=== PATIENT | male | born 1960 | race African-American/Black ===

== ENCOUNTER 2020-05-31 18:08 | Inpatient (IN) | payer OTHER, SELFPAY ==
--- NOTE | ~2020-05-31 | US_ITS ---
EXAMINATION: US carotid duplex BI DATE: 06/02/2020 10:33 INDICATION: Acute infarcts in the left occipital lobe and cerebellum. TECHNIQUE: Grayscale, color Doppler, and pulsed Doppler images of the cervical carotid arteries were obtained. The degree of vessel stenosis is placed in one of the following categories: normal, <50%, 5 0-69%, >=70% but less than near-occlusion, near-occlusion, or total occlusion. Note that percent sten osis relative to normal distal artery lumen diameter is indirectly measured from velocity measurement s as described by Mustapha, et al. Radiology 2003; 229:340-346. COMPARISON: None. FINDINGS: RIGHT: The right common carotid artery (CCA) peak systolic velocity (PSV) is 94 cm/s. The right internal car otid artery (ICA) PSV is 91 cm/s. The right ICA end-diastolic velocity (EDV) is 32 cm/s. The right IC A/CCA PSV ratio is 1.0. Grayscale and color Doppler images yield an estimate of 0% diameter reduction from plaque in the ICA. There is antegrade flow in the right vertebral artery. LEFT: The left CCA PSV is 122 cm/s. The left ICA PSV is 91 cm/s. The left ICA EDV is 32 cm/s. The left ICA/ CCA PSV ratio is 0.7. Grayscale and color Doppler images yield an estimate of 0% diameter reduction f rom plaque in the ICA. There is antegrade flow in the left vertebral artery. IMPRESSION: 1. Normal internal carotid arteries. Reviewed, dictated and finalized at location A.
--- NOTE | ~2020-05-31 | XR_ITS ---
XR chest 1V portable DATE: 05/31/2020 21:06 INDICATION: Right leg paresis TECHNIQUE: Portable upright AP chest on 05/31/2020 at 2107 hours COMPARISON: None FINDINGS: Normal heart size. Mild aortic tortuosity. No hilar or mediastinal enlargement. There is mild to moderate right diaphragmatic elevation. There is mild discoid atelectasis or scarring at the lung bases. No pulmonary infiltrate or consolida tion, pleural effusion or pulmonary vascular congestion or pneumothorax is evident. Degenerative spurring and mild dextroscoliosis of the thoracic spine. IMPRESSION: Mild discoid atelectasis or scarring at the lung bases Mild to moderate elevation right leaf of diaphragm Reviewed, dictated and finalized at location A.
--- NOTE | ~2020-05-31 | US_ITS ---
EXAMINATION: US renal BI DATE: 06/01/2020 13:37 INDICATION: Elevated creatinine TECHNIQUE: Multiple ultrasound grayscale images of the kidneys were obtained. COMPARISON: CT angiogram of the abdomen FINDINGS: The right kidney measures 7.4 x 5.7 x 5.9 cm. The left kidney measures 12.2 x 6.7 x 6.7 cm. The kidne ys demonstrate normal echogenicity. There is no hydronephrosis in either kidney. The small bilateral nonobstructing renal stone seen on prior CT are not appreciated in the current study likely due to t heir small size. The bladder is normal. IMPRESSION: 1. Small bilateral renal stone seen earlier in the day on CT are not visualized in the current study likely due to their small size. Otherwise normal kidneys with no hydronephrosis. Reviewed, dictated and finalized at location A. IMPRESSION: 1. Small bilateral renal stone seen earlier in the day on CT are not visualize d in the current study likely due to their small size. Otherwise normal kidneys with no hydronephrosis.
--- NOTE | ~2020-05-31 | CT_ITS ---
EXAMINATION: CTA abd aorta runoff DATE: 05/31/2020 19:38 INDICATION: Right leg weakness, cold right leg TECHNIQUE: Computed tomography (CT) of the abdomen was performed with 150 cc Omnipaque 350 intravenou s contrast. Automated exposure control and iterative reconstruction technique were employed. Exam dos e: 1325.03 mGy-cm total exam DLP. COMPARISON: None. FINDINGS: No hepatic, splenic, pancreatic, and adrenal or suspicious renal space occupying mass lesio n is evident. The gallbladder is present. No bile duct or pancreatic duct dilatation. Bilateral nonobstructive nephrolithiasis. No ureteral calculus or hydroureteronephrosis. There is normal caliber of the abdominal aorta. There is no significant stenosis or occlusion of the abdominal aorta, common, internal or external iliac arteries, common femoral, femoral or popliteal ar teries. The trifurcations are patent. There is some atherosclerotic calcification of these vessels. N o clinically significant stenosis or occlusion is identified. No intraperitoneal or retroperitoneal or pelvic mass lesion or adenopathy or ascites. Normal appendix. No bowel obstruction or intraperitoneal free air. Included skeletal structures are unremarkable. IMPRESSION: Bilateral nonobstructive nephrolithiasis Reviewed, dictated and finalized at Location [facility]. Reviewed, dictated and finalized at location A.
--- NOTE | ~2020-05-31 | US_ITS ---
EXAMINATION:US venous doppler LE BI INDICATION:Right calf pain. Recent stroke. TECHNIQUE: Multiple grayscale, color flow and Doppler images of the bilateral lower extremity deep ve nous systems were obtained and reviewed. COMPARISON:No prior studies for comparison. FINDINGS: The common femoral, superficial femoral and popliteal veins demonstrate normal respiratory variation, augmentation and compressibility. Color flow is also seen within the posterior tibial, pe roneal, greater saphenous and profunda veins. IMPRESSION: 1: No lower extremity deep venous thrombosis. Reviewed, dictated and finalized at location A.
--- NOTE | ~2020-05-31 | CT_ITS ---
EXAMINATION: CT brain wo con DATE: 05/31/2020 19:38 INDICATION: Right leg weakness TECHNIQUE: Computed tomography (CT) of the head was performed without intravenous contrast. The mA wa s adjusted according to patient size. Iterative reconstruction technique was employed. Exam dose: 60 5.33 mGy-cm total exam DLP. COMPARISON: None FINDINGS: No intracranial mass lesion or hemorrhage, midline shift or mass effect. Normal ventricular size. No subdural or epidural hematoma. No orbital mass lesion. Bilateral carotid siphon internal carotid artery calcifications. The mastoid air cells and included paranasal sinuses are normally developed and aerated. No fracture or bone destruction of the cranial vault. IMPRESSION: Cerebral atherosclerosis; no acute intracranial finding is evident. CT is not sensitive for detection of hyperacute ischemic cerebrovascular accident. Reviewed, dictated and finalized at Location [facility]. Reviewed, dictated and finalized at location A. IMPRESSION: Cerebral atherosclerosis; no acute intracranial finding is evident . CT is not sensitive for detection of hyperacute ischemic cerebrovascular acci dent.
--- NOTE | ~2020-05-31 | MR_ITS ---
EXAMINATION: MR brain/brain stem wo/w con DATE: 06/01/2020 13:23 INDICATION: Acute cerebrovascular accident. TECHNIQUE: Magnetic resonance imaging (MRI) of the brain and brainstem was performed without and with 17 mL MultiHance intravenous contrast. Sequences included sagittal and axial T1-weighted FSE, axial diffusion-weighted FS EPI, axial T2*-weighted GRE, axial T2-weighted FLAIR Propeller, and axial T2-we ighted Propeller. Postcontrast sequences included axial and coronal T1-weighted FSE. Apparent diffusi on coefficient (ADC) maps were created. COMPARISON: Head CT 05/31/2020 FINDINGS: There are acute infarcts in the left occipital lobe and bilateral cerebellum. There are sca ttered areas of nonspecific increased T2-weighted signal intensity in the cerebral white matter, whic h is within normal limits for the patient's age. There is no intracranial hemorrhage or abnormal mass lesion. The ventricles are normal in size. The paranasal sinuses are clear. The mastoid air cells ar e normal. The orbits are normal. IMPRESSION: 1. Acute infarcts in the left occipital lobe and bilateral cerebellum. Reviewed, dictated and finalized at location A.
[2020-05-31 18:10] VITALS: BP 132/84; PULSE 88; RESP 13; TEMP 36.9; O2SAT 98
[2020-05-31 18:28] VITALS: BP 120/85; PULSE 80; RESP 13; O2SAT 97
[2020-05-31 18:42] LABS: Basophils Percent Auto 0.2 % (0.2-1.2); Eosinophils Percent Auto 0.1 % (0-4.4); Hematocrit 45.9 % (42.0-52.0); Hemoglobin 15.6 g/dL (14.0-18.0); Immature Granulocyte Absolute 0.07 K/mm3 (0.00-0.031); Immature Granulocyte Percent A 0.4 % (0-0.5); Lymphocytes Absolute Auto 1.72 K/mm3 (0.9-3.2); Lymphocytes Percent Auto 9.3 % (18.3-44.2); Mean Corpuscular Hemoglobin 30.2 pg (26-34); Mean Corpuscular Volume 88.8 fl (80-100); Mean Platelet Volume 12.4 fl (7.4-10.4); Monocytes Absolute Auto 1.1 K/mm3 (0.1-0.6); Neutrophils Absolute Auto 15.5 K/mm3 (1.3-6.7); Platelet Count Result 167 k/mm3 (150-375); Red Blood Count 5.17 M/mm3 (4.6-6.20); Red Cell Distribution Width 12.5 % (11.5-14.5); White Blood Count 18.4 K/mm3 (4.5-10.0)
[2020-05-31 18:49] LABS: INR 1.1; Prothrombin Time 13.8 Seconds (11.1-14.7)
[2020-05-31 18:50] LABS: Partial Thromboplastin Time 29.2 SECONDS (22.3-36.8)
[2020-05-31 18:51] LABS: Blood Urea Nitrogen 27 mg/dL (9-20); Calcium 9.1 mg/dL (8.4-10.2); Carbon Dioxide 31 mmol/L (22-30); Chloride 102 mmol/L (98-107); Estimated CRCL calculation 43 ml/min; Estimated Glomerular Filt Rate 50; Glucose 91 mg/dL (75-110); Potassium 5.2 mmol/L (3.4-5.0); Sodium 139 mmol/L (137-145)
[2020-05-31 19:05] LABS: Troponin I 0.143 ng/mL (0.000-0.034)
--- NOTE | 2020-05-31 19:17 | ED.GENADULT ---
HPI - General Adult General Chief complaint: Neuro Symptoms/Deficit Stated complaint: neuro Time Seen by Provider: 05/31/20 18:48 History of Present Illness HPI narrative: Patient is a 59 y/o male complaining of moderate right leg heaviness starting this morning. There is no alleviating or exacerbating factor. He is not sure about the exact timing, but thought it was perhaps 10:00 AM this morning. He states that he had a previous stroke approximately 5 years ago which left him with residual right hemiparesis. He is usually able to walk with a cane. He states that his right leg weakness is more severe than baseline. He denies any leg pain. He denies any chest pain, SOB or fever. He states that his right leg is always colder than left leg since his previous stroke. Related Data Home Medications Medication Instructions Recorded Confirmed aspirin 81 mg PO DAILY 05/31/20 05/31/20 atorvastatin 40 mg PO HS 05/31/20 05/31/20 gabapentin 300 mg PO HS 05/31/20 05/31/20 lisinopril 5 mg PO DAILY 05/31/20 05/31/20 omeprazole 40 mg PO DAILY 05/31/20 05/31/20 Allergies Allergy/AdvReac Type Severity Reaction Status Date / Time No Known Allergies Allergy Verified 05/31/20 18:16 Review of Systems Constitutional: Constitutional: Denies chills, Denies fever(s), Denies headache(s) and Denies weakness Eyes: Eyes: Denies blurry vision ENT: Denies headache(s) and Denies neck pain Cardiovascular: Cardiovascular: Denies chest pain and Denies dyspnea Respiratory: Respiratory: Denies cough and Denies dyspnea Gastrointestinal: Gastrointestinal: Denies abdominal pain, Denies diarrhea, Denies nausea and Denies vomiting Genitourinary: Genitourinary: Denies hematuria and Denies dysuria Musculoskeletal: Musculoskeletal: Denies back pain and Denies neck pain Neurologic: Denies headache(s), Reports focal weakness (increasing right leg weakness) and Reports weakness PMFSH Past Medical History Medical History GERD (gastroesophageal reflux disease) H/O: HTN (hypertension) History of CVA (cerebrovascular accident) Hyperlipidemia Surgical History Surgical History History of tonsillectomy Family History Family History Mother Heart attack Father Hypertension Social History Social History Smoking packs per day: 0.5 Smoking cigarettes per day: 10.0 Years smoked: 30 Smoking pack-years: 15.00 Smoking status: Current every day smoker Tobacco type: cigarettes Alcohol intake: current Drinks per week: 1 Substance use: current Substance use type: marijuana, crack/cocaine and methamphetamine Gender identity (if verbalized by the patient): Male Spiritual care concerns: No Exam Const: General: no acute distress and well developed Orientation/consciousness: oriented to person, oriented to place, oriented to time and patient oriented x3 HENMT: Head: normocephalic Ears: external ears normal General nose exam: Normal external nose present Eyes: General: appearance normal, both eyes and all related structures Conjunctivae: conjunctivae normal Neck: Neck: normal visual inspection and full ROM Chest: Chest palpation & inspection: normal inspection of the chest and no tenderness Resp: Effort & Inspection: normal respiratory effort Auscultation: clear to auscultation bilaterally Cardio: Rate: regular rate Rhythm: regular rhythm GI: GI Palp: No abdominal tenderness and Yes Soft to palpation Skin: General skin exam: normal color and turgor normal Neuro: General: oriented to person, oriented to place, oriented to time and patient oriented x3 Cognition (Neuro): normal cognition Motor exam (neuro): strength normal (right hemiparesis, however, able to lift right leg off bed) Extrem: General: normal to inspecti
[2020-05-31 19:59] LABS: Creatine Kinase > 16000 U/L (55-170)
[2020-05-31 20:12] VITALS: BP 147/79; PULSE 83; RESP 18; O2SAT 97
[2020-05-31] MEDS: SODIUM CHLORIDE 0.9% IV 1,000 ML 999 ML IV CONT ×2 (20:13→21:17)
[2020-05-31 21:17] VITALS: BP 152/84; PULSE 82; RESP 16; O2SAT 98
[2020-05-31 22:45] VITALS: BP 128/87; PULSE 104; RESP 18; TEMP 36.1; O2SAT 100; BMI 30.4
[2020-05-31] MEDS: SODIUM CHLORIDE 0.9% IV 1,000 ML 125 ML IV CONT (23:03)
--- NOTE | 2020-05-31 23:39 | ADMGEN ---
This patient, Nicho Padron, was admitted to IMU Room 200-01 FROM 05/31/204. Patient/family oriented to hospital policies and general routines including ID bracelet, bed and alarms, visiting hours, pain management, procedures, bathroom and other care routines, personal items, smoking policy, room service/diet, and visiting hours. Valuables list has been completed. Information on how to activate the Rapid Response Team has been discussed. Patient/Family are encouraged to report perceived risks to care and to ask questions if they do not understand what they are told or what they should do.
[2020-05-31 23:42] VITALS: PULSE 80
[2020-06-01] VITALS (18 sets, daily range): BP systolic 103–131; BP diastolic 64–84; PULSE 69–101; RESP 16–20; TEMP 35.8–36.8; O2SAT 97–100
--- NOTE | 2020-06-01 | ECHO_ITS ---
Patient Info Name: Nicho Padron Age: 59 years : 1960 Gender: Male Ht: 66 in Wt: 188 lbs BSA: 2.02 m2 HR: 82 bpm BP: 115 / 66 mmHg Heart Rhythm: Sinus Rhythm Technical Quality: Good Exam Date: 06/01/2020 11:44 AM Exam Location: [facility] Patient Status: Inpatient Admit Date: 06/01/2020 Staff Ordering Physician: Kyler Kinney MD Technology Strategist: Bebeto Taylor RDCS, RT Attending Provider: Kyler Kinney MD Referring Physician: Gregoria CASILLAS; Exam Type: CA echo dop bubble study w con Study Info Indications I63.119 - Cerebral infarction due to embolism of unspecified vertebral artery Strain analysis performed. Complete two-dimensional, color flow and Doppler transthoracic echocardiogram is performed with contrast to opacify the left ventricle and to improve the deliniation of the left ventricle endocardial borders. Complete two-dimensional, color flow and Doppler transthoracic echocardiogram is performed with agitated saline. Summary 1. Left ventricular systolic function is normal, estimated at 60-65%. 2. There is mildly increased left ventricular wall thickness. 3. The left ventricular diastolic function is grade I diastolic dysfunction. 4. No intra-atrial shunt with injection of agitated saline with and without Valsalva. 5. There is mild tricuspid valve regurgitation. 6. No pulmonary hypertension, estimated pulmonary arterial systolic pressure is 27 mmHg. 7. There is trace mitral valve regurgitation. 8. There is no aortic valve stenosis. Recommendations * Consider transesophageal echocardiogram if clinically indicated. Left Ventricle Left ventricular chamber dimension is normal. Left ventricular systolic function is normal, estimated at 60-65%. There is mildly increased left ventricular wall thickness. The left ventricular diastolic function is grade I diastolic dysfunction. Global longitudinal strain is mildly elevated at -14 %. Right Ventricle Right ventricular chamber dimension is normal. Right ventricular systolic function is normal. Left Atria Normal left atrial size. Right Atria Right atrial chamber dimension is mildly enlarged. Atrial Septum No intra-atrial shunt with injection of agitated saline with and without Valsalva. Aortic Valve The aortic valve is trileaflet. There is no aortic valve stenosis. There is trace aortic valve regurgitation. Pulmonic Valve The pulmonic valve is not well visualized. There is trace pulmonic regurgitation. Mitral Valve The mitral valve has normal leaflets. There is trace mitral valve regurgitation. Tricuspid Valve The tricuspid valve leaflets are normal. There is mild tricuspid valve regurgitation. No pulmonary hypertension, estimated pulmonary arterial systolic pressure is 27 mmHg. Pericardium/Pleural The pericardium appears normal. There is trivial pericardial effusion. Inferior Vena Cava Normal inferior vena cava with >50% collapse upon inspiration consistent with normal right atrial pressure, 5 mmHg. Aorta The aortic root size at the sinus of Valsalva is normal. The prox ascending aorta size is normal. Left Ventricular Outflow Tract Name Value Normal LVOT 2D LVOT Diameter 2.1 cm
--- NOTE | 2020-06-01 00:31 | PM.IMHP ---
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 The patient is known to have chronic right upper/lower extremity weakness secondary to a previous stroke but states that his right leg feels much heavier since this morning. He admits to me that he has been very depressed over the past few days and admits that he has been using illicit substances such as crack, methamphetamine and smoking marijuana. He also reports that he fell this morning and laid on the ground for a few hours and was too weak to get up. He denies any fevers, chills, cough, shortness of breath, chest pain, abdominal pain, nausea, vomiting, diarrhea, rectal bleeding or LE edema. He was evaluated in the ER and CT brain was unremarkable. Routine labs demonstrated acute renal failure, rhabdomyolysis, and an elevated troponin. NO other complaints. Review of Systems Review of Systems: All systems reviewed & are unremarkable except as noted in HPI and below PMFSH Past Medical History Medical History GERD (gastroesophageal reflux disease) H/O: HTN (hypertension) History of CVA (cerebrovascular accident) Hyperlipidemia Surgical History Surgical History History of tonsillectomy Family History Family History Mother Heart attack Father Hypertension Social History Social History Smoking packs per day: 0.5 Smoking cigarettes per day: 10.0 Years smoked: 30 Smoking pack-years: 15.00 Smoking status: Current every day smoker Tobacco type: cigarettes Alcohol intake: current Drinks per week: 1 Substance use: current Substance use type: marijuana, crack/cocaine and methamphetamine Gender identity (if verbalized by the patient): Male Spiritual care concerns: No Meds Home Medications and Allergies Home Medications Medication Instructions Recorded Confirmed Type aspirin 81 mg PO DAILY 05/31/20 05/31/20 History atorvastatin 40 mg PO HS 05/31/20 05/31/20 History gabapentin 300 mg PO HS 05/31/20 05/31/20 History lisinopril 5 mg PO DAILY 05/31/20 05/31/20 History omeprazole 40 mg PO DAILY 05/31/20 05/31/20 History Allergies Allergy/AdvReac Type Severity Reaction Status Date / Time No Known Allergies Allergy Verified 05/31/20 18:16 Vital Signs Vital Signs - 24 hr 05/31/20 18:10 05/31/20 18:28 05/31/20 20:12 Temperature 36.9 C Pulse Rate 88 80 83 Respiratory Rate 13 13 18 Blood Pressure 132/84 120/85 147/79 H Pulse Oximetry 98 97 97 05/31/20 21:17 05/31/20 22:45 05/31/20 23:42 Temperature 36.1 C L Pulse Rate 82 104 H 80 Respiratory Rate 16 18 Blood Pressure 152/84 H 128/87 Pulse Oximetry 98 100 Exam Const: General: cooperative, no acute distress, alert, awake, ill appearing chronically and tired appearing Nutritional Appearance: well nourished Orientation/consciousness: patient oriented x3 HENMT: Head: other (Mild right sided facial droop+) General nose exam: Normal external nose present Face and sinus: normal facial exam Mouth: Yes Normal oral and palatal mucosa present and Yes oropharynx normal Eyes: Pupils: Equal, round and reactive pupils present EOM: EOMs intact bilaterally Neck: Neck: supple and no JVD Thyroid: thyroid normal Lymphatic: lymphadenopathy not noted Resp: Effort & Inspection: normal respiratory effort Auscultation: clear to auscultation bilaterally Cardio: Rate: regular rate Rhythm: regular rhythm Heart sounds: no murmurs GI: Inspection: normal to inspection Auscultation: normal bowel sounds Skin: General skin exam: normal color and no rashe
[2020-06-01] MEDS: ATORVASTATIN 40 MG TABLET PO (01:07)
[2020-06-01] MEDS: GABAPENTIN 300 MG CAPSULE PO ×2 (01:07→21:52)
[2020-06-01 01:37] LABS: Troponin I 0.144 ng/mL (0.000-0.034)
[2020-06-01 03:56] LABS: Amphetamine Screen Urine Positive (Negative); Barbiturate Screen Urine Negative (Negative); Benzodiazepines Screen Urine Negative (Negative); Cannabinoid Screen Urine Negative (Negative); Cocaine Screen Urine Positive (Negative); Methadone Screen Urine Negative (Negative); Opiate Screen Urine Negative (Negative); Phencyclidine Screen Urine Negative (Negative)
[2020-06-01 04:55] LABS: Basophils Percent Auto 0.2 % (0.2-1.2); Eosinophils Absolute Auto 0.1 K/mm3 (0-0.3); Eosinophils Percent Auto 0.9 % (0-4.4); Hematocrit 42.8 % (42.0-52.0); Hemoglobin 14.5 g/dL (14.0-18.0); Immature Granulocyte Absolute 0.06 K/mm3 (0.00-0.031); Immature Granulocyte Percent A 0.4 % (0-0.5); Lymphocytes Absolute Auto 2.12 K/mm3 (0.9-3.2); Mean Corpuscular HGB Conc 33.9 g/dl (32-36); Mean Corpuscular Hemoglobin 29.9 pg (26-34); Mean Corpuscular Volume 88.2 fl (80-100); Mean Platelet Volume 12.2 fl (7.4-10.4); Monocytes Percent Auto 6.9 % (2.6-8.5); Neutrophils Absolute Auto 11.7 K/mm3 (1.3-6.7); Neutrophils Percent Auto 77.6 % (45.5-73.1); Platelet Count Result 148 k/mm3 (150-375); Red Blood Count 4.85 M/mm3 (4.6-6.20); Red Cell Distribution Width 12.3 % (11.5-14.5); White Blood Count 15.1 K/mm3 (4.5-10.0)
[2020-06-01 05:10] LABS: Cholesterol 93 mg/dL (0-200); HDL Direct 32 mg/dL; Sodium 134 mmol/L (137-145); Triglycerides 136 mg/dL (<150)
[2020-06-01 05:16] LABS: Blood Urea Nitrogen 28 mg/dL (9-20); Calcium 8.1 mg/dL (8.4-10.2); Carbon Dioxide 24 mmol/L (22-30); Chloride 104 mmol/L (98-107); Estimated CRCL calculation 39 ml/min; Estimated Glomerular Filt Rate 44; Glucose 105 mg/dL (75-110); Potassium 4.4 mmol/L (3.4-5.0)
[2020-06-01 05:21] LABS: LDL Cholesterol Direct 35 mg/dL
[2020-06-01] MEDS: SODIUM CHLORIDE 0.9% IV 1,000 ML 125 ML IV CONT (06:03)
[2020-06-01 06:05] LABS: Thyroid Stimulating Hormone Reflex 0.649 uIU/mL (0.465-4.68)
[2020-06-01 06:43] LABS: Troponin I 0.138 ng/mL (0.000-0.034)
[2020-06-01] MEDS: SODIUM BICARBONATE 8.4% 150 MEQ in DEXTROSE 5% 1,000 ML 950 ML IV CONT ×2 (09:00→17:53)
[2020-06-01] MEDS: ASPIRIN 81 MG ENTERIC TABLET PO (09:02)
[2020-06-01] MEDS: PANTOPRAZOLE 40 MG TABLET PO ×2 (09:02→17:47)
[2020-06-01 10:08] LABS: Creatine Kinase > 16000 U/L (55-170)
[2020-06-01] MEDS: PERFLUTREN LIPID MICROSPHERES 1.5 ML VIAL DILUTED TO 10 ML TOTAL VOLUME IV PUSH (12:39)
--- NOTE | 2020-06-01 18:40 | PM.IMPN ---
Progress Note: A&P Assessment and Plan (1) Right leg weakness: Code(s): R29.898 - Other symptoms and signs involving the musculoskeletal system Status: Acute Assessment and Plan: acute CVA w/ increased right LE weakness. Seen on MR scan today, ASA therapy. Monitor blood pressure and allow for permissive HTN and hold Walter. Echocardiogram w/ bubble study normal with no shunting or valvular abnormalities with normal EF. (2) Rhabdomyolysis: Qualifiers: Rhabdomyolysis type: non-traumatic Qualified Code(s): M62.82 - Rhabdomyolysis Code(s): M62.82 - Rhabdomyolysis Status: Acute Assessment and Plan: Appears to be secondary to the patient laying on the ground for hours. Continue aggressive IV hydration overnight. Patient does relate that he had been taking 80 mg of atorvastatin recently state of his usual 40 and we will hold statin also (3) Drug abuse: Code(s): F19.10 - Other psychoactive substance abuse, uncomplicated Status: Acute Assessment and Plan: Dr Kinney counseled the patient regarding polysubstance abuse and cessation. (4) Hyperlipidemia: Qualifiers: Hyperlipidemia type: unspecified Qualified Code(s): E78.5 - Hyperlipidemia, unspecified Code(s): E78.5 - Hyperlipidemia, unspecified Status: Chronic Assessment and Plan: check lipid panel. And hold Lipitor with the rhabdo (5) GERD (gastroesophageal reflux disease): Qualifiers: Esophagitis presence: esophagitis presence not specified Qualified Code(s): K21.9 - Gastro-esophageal reflux disease without esophagitis Code(s): K21.9 - Gastro-esophageal reflux disease without esophagitis Status: Chronic Assessment and Plan: Continue prilosec. (6) H/O: HTN (hypertension): Code(s): Z86.79 - Personal history of other diseases of the circulatory system Status: Chronic Assessment and Plan: stable. monitor blood pressure. Hold WALTER-inhibitor with the renal insufficiency and CVA (7) Acute kidney injury: Code(s): N17.9 - Acute kidney failure, unspecified Status: Acute Assessment and Plan: Creatinine slightly elevated at a not sure what his baseline is but will continue aggressive hydration with the rhabdo with bicarbonate. If creatinine continues to rise then nephrology consultation. Renal sonogram negative and still having good urine output Subjective Date/time seen: 06/01/20 18:40 Interval history: Date of visit 7/6. 59-year-old hypertensive black male status post left cerebral infarction with right hemiparesis presented with increasing weakness and right leg and feeling as if his leg was heavy. Had been lying on the floor for some time when he fell and CK markedly elevated. Right leg still feels strange this a.m. Exam Narrative: Exam Narrative: Blood pressure 130/82 pulse is 86 saturating 98% on room air afebrile Pupil equal reactive to light sclera anicteric Lungs clear CV regular rate rhythm air no murmurs Abdomen is soft nontender Extremities without edema right foot is cooler than left with posterior tibial only 1+ on that side the patient states that since his original CVA his right foot has always been cool Neuro alert oriented x3 cranial nerves 2-12 are intact weakness and right arm and leg which she says the leg is much worse than had been in the past Objective Data Vital Signs Vital Signs: Vital Signs - 24 hr 05/31/20 20:12 05/31/20 21:17 05/31/20 22:45 Temperature 36.1 C L Pulse Rate 83 82 104 H Respiratory Rate 18 16 18 Blood Pressure 147/79 H 152/84 H 128/87 Pulse Oximetry 97 98 100 05/31/20 23:42 06/01/20 01:41 06/01/20 03:50 Temperature Pulse Rate 80 83 80 Respiratory Rate Blood Pressure Pulse Oximetry 06/01/20 03:54 06/01/20 06:00 06/01/20 07:04 Temperature 36.6 C 36.6 C Pulse Rate 72 77 76 Respiratory Rate 18 18 Blood Pressure 115/66 103/64 Pulse Oxi
[2020-06-02] VITALS (16 sets, daily range): BP systolic 98–155; BP diastolic 51–91; PULSE 75–99; RESP 18–20; TEMP 36–37.1; O2SAT 97–100
[2020-06-02] MEDS: SODIUM BICARBONATE 8.4% 150 MEQ in DEXTROSE 5% 1,000 ML 950 ML IV CONT ×2 (00:12→06:57)
[2020-06-02 04:50] LABS: Basophils Percent Auto 0.2 % (0.2-1.2); Eosinophils Absolute Auto 0.1 K/mm3 (0-0.3); Eosinophils Percent Auto 1.3 % (0-4.4); Hematocrit 41.7 % (42.0-52.0); Immature Granulocyte Absolute 0.04 K/mm3 (0.00-0.031); Immature Granulocyte Percent A 0.4 % (0-0.5); Lymphocytes Absolute Auto 2.17 K/mm3 (0.9-3.2); Lymphocytes Percent Auto 20.1 % (18.3-44.2); Mean Corpuscular HGB Conc 33.6 g/dl (32-36); Mean Corpuscular Hemoglobin 29.4 pg (26-34); Mean Corpuscular Volume 87.4 fl (80-100); Mean Platelet Volume 12.1 fl (7.4-10.4); Monocytes Absolute Auto 0.9 K/mm3 (0.1-0.6); Monocytes Percent Auto 7.9 % (2.6-8.5); Neutrophils Absolute Auto 7.6 K/mm3 (1.3-6.7); Neutrophils Percent Auto 70.1 % (45.5-73.1); Platelet Count Result 146 k/mm3 (150-375); Red Blood Count 4.77 M/mm3 (4.6-6.20); White Blood Count 10.8 K/mm3 (4.5-10.0)
[2020-06-02 05:07] LABS: Alanine Aminotransferase 264 U/L (4-50); Albumin Level 3.2 g/dL (3.5-5.1); Alkaline Phosphatase 62 U/L (38-126); Bilirubin,Total 0.3 mg/dL (0.2-1.3); Blood Urea Nitrogen 26 mg/dL (9-20); Calcium 7.9 mg/dL (8.4-10.2); Carbon Dioxide 37 mmol/L (22-30); Chloride 98 mmol/L (98-107); Estimated CRCL calculation 35 ml/min; Estimated Glomerular Filt Rate 39; Glucose 131 mg/dL (75-110); Phosphorus 3.6 mg/dL (2.5-4.5); Potassium 3.9 mmol/L (3.4-5.0); Sodium 138 mmol/L (137-145)
[2020-06-02 05:10] LABS: Aspartate Amino Transferase 719 U/L (17-59)
[2020-06-02 06:00] LABS: Creatine Kinase > 16000 U/L (55-170)
--- NOTE | 2020-06-02 09:01 | PM.IMPN ---
Progress Note: A&P Assessment and Plan (1) Right leg weakness: Code(s): R29.898 - Other symptoms and signs involving the musculoskeletal system Status: Acute Assessment and Plan: Patient has hx of CVA and right sided weakness but with worsening symtpoms. MRI 06/01 showing acute infarcts in the left occipital lobe and bilateral cerebellum. Echo showing grade 1 diastolic dysfunction with EF of 60-65% and no shunt. He takes baby ASA chronically. Monitor blood pressure and allow for permissive HTN overnight. Carotid ultrasound pending. Continue neuro checks. Neurology consult. Increase to full aspirin. Continue PT and OT. (2) Rhabdomyolysis: Qualifiers: Rhabdomyolysis type: non-traumatic Qualified Code(s): M62.82 - Rhabdomyolysis Code(s): M62.82 - Rhabdomyolysis Status: Acute Assessment and Plan: Appears to be secondary to the patient laying on the ground for hours. Total CK still greater than 16,000. Creatinine worsening. Elevated troponin is noted but more likely related to the rhabdomyolysis. Elevated liver enzymes also more likely related to the rhabdomyolysis. Currently on IV fluids with bicarb. Continue aggressive IV hydration. Nephrology consult. (3) Drug abuse: Code(s): F19.10 - Other psychoactive substance abuse, uncomplicated Status: Acute Assessment and Plan: Patient has been counseled about the benefits of abstaining from drug use. It was explained that cocaine may have contributed to his stroke. (4) Hyperlipidemia: Qualifiers: Hyperlipidemia type: unspecified Qualified Code(s): E78.5 - Hyperlipidemia, unspecified Code(s): E78.5 - Hyperlipidemia, unspecified Status: Chronic Assessment and Plan: Lipid panel noted. Lipitor on hold due to rhabdomyolysis. (5) GERD (gastroesophageal reflux disease): Qualifiers: Esophagitis presence: esophagitis presence not specified Qualified Code(s): K21.9 - Gastro-esophageal reflux disease without esophagitis Code(s): K21.9 - Gastro-esophageal reflux disease without esophagitis Status: Chronic Assessment and Plan: Stable. Continue Protonix. (6) H/O: HTN (hypertension): Code(s): Z86.79 - Personal history of other diseases of the circulatory system Status: Chronic Assessment and Plan: Blood pressure reviewed on 06/02/2020. Blood pressure elevated at times but mostly well controlled. Patient's lisinopril on hold. Continue to monitor. (7) Acute kidney injury: Code(s): N17.9 - Acute kidney failure, unspecified Status: Acute Assessment and Plan: Cr 1.7 on admission. Unclear of he has underlying CKD. Creatinine worsening however. Concerned that he has acute kidney injury from his rhabdomyolysis. Renal ultrasound showing small right kidney. Nephrology consult. Subjective Date/time seen: 06/02/20 09:01 Interval history: Date of visit 06/02. 59yo male with HTN and hx of left cerebral infarction with right hemiparesis presented with increasing weakness and right leg and feeling as if his leg was heavy. Had been lying on the floor for some time when he fell and CK markedly elevated. Patient states his right foot numbness is better today. Has not been up walking. He denies chest pain or abdominal pain. He denies shortness of breath. No nausea or vomiting. He is eating well. He denies odynophagia or dysphagia. Exam Narrative: Exam Narrative: AF 155/91 82 20 100% Gen - NARD lying semi recumbent in bed Chest - CTA bilaterally with prolonged expiratory phase, nml RR CV - RRR S1/S2; telemetry showing no significant dysrhythmias Abd - Soft, NT/ND, Positive BS Ext - No pedal edema Neuro -right-sided hemiparesis Psych - Nml mood and affect. He becomes appropriately upset when he learns that he has had a stroke. Skin - Warm and dry Objective Data Vital Signs Vital Signs: Vital Si
[2020-06-02] MEDS: PANTOPRAZOLE 40 MG TABLET PO ×2 (09:10→18:01)
[2020-06-02] MEDS: NICOTINE (*PBKC) 14 MG PATCH 1 PATCH TRANSDERM (09:10)
[2020-06-02] MEDS: ASPIRIN 81 MG ENTERIC TABLET PO (09:10)
--- NOTE | 2020-06-02 10:24 | PCPTNOTE ---
Attempted PT eval. Pt gone for US. Will try again later today.
--- NOTE | 2020-06-02 10:46 | PM.CNNEP ---
Assessment and Plan Assessment and plan (1) Acute kidney injury: Code(s): N17.9 - Acute kidney failure, unspecified Status: Acute Assessment and Plan: The patient has acute renal failure. He has a very high CPK and had brown urine on admission. Most likely this is rhabdomyolysis induced acute kidney injury. He was lying flat in 1 position for 2 hours which may have resulted in the rhabdomyolysis. This as well, such as viral infections, sepsis, dermatomyositis and polymyositis, and statins. His atorvastatin has been discontinued. He does not really have any symptoms of any of the other issues. At this point he is getting bicarbonate and IV fluids. His bicarbonate is up to 37. Will check a urinalysis. If the urine is alkaline then we can switch to saline and watch this. If the urine is not all colon we can add Diamox. Either way he needs continue some isotonic fluids to keep the urine output going dilute the myoglobin. (2) Rhabdomyolysis: Qualifiers: Rhabdomyolysis type: non-traumatic Qualified Code(s): M62.82 - Rhabdomyolysis Code(s): M62.82 - Rhabdomyolysis Status: Acute Assessment and Plan: Etiology most likely due to pressure related necrosis of muscle. His liver enzymes are high also and probably these enzymes are coming from the muscle as well. Since his CK is listed at greater than 16,000, we can use the ALT and AST as surogates to make sure the rhabdomyolysis is improving. (3) Right leg weakness: Code(s): R29.898 - Other symptoms and signs involving the musculoskeletal system Status: Acute Assessment and Plan: He has had a stroke in the past. Strokes in the posterior circulation. An echocardiogram was done which shows no source of clot. (4) H/O: HTN (hypertension): Code(s): Z86.79 - Personal history of other diseases of the circulatory system Status: Chronic Assessment and Plan: Blood pressure has generally been pretty well controlled. (5) Drug abuse: Code(s): F19.10 - Other psychoactive substance abuse, uncomplicated Status: Acute (6) GERD (gastroesophageal reflux disease): Qualifiers: Esophagitis presence: esophagitis presence not specified Qualified Code(s): K21.9 - Gastro-esophageal reflux disease without esophagitis Code(s): K21.9 - Gastro-esophageal reflux disease without esophagitis Status: Chronic Assessment and Plan: No symptoms. History of Present Illness Reason for Consult Consult date: 06/02/20 Chief Complaint Chief complaint: rhabdomyolysis History of Present Illness Narrative: Nicho is a very pleasant 59-year-old gentleman who has multiple medical problems including history of a CVA in 2013, GERD, hypertension, hyperlipidemia, borderline diabetes, current cigarette user, recent marijuana crack and methamphetamine user as well. Patient says that on Monday his right foot seemed heavier than usual. He struggled somewhat to walk and he ended up falling. He lay there for 2 hours before he was able to get up. He eventually made it to the emergency room. He was evaluated in the ER and found to have very high CPK and an elevated creatinine. He was given IV fluids. And he is feeling a little bit better. He says that his urine was brown on Monday. 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 He has not had any past history of kidney disease that he knows of. No bladder infections, kidney stones, but bloody urine, or foamy urine in the past. He has never been told of any kidney problems. Review of Systems Constitutional: Constitutional: Reports no additional constitutional complaints Eyes: Eyes: Reports no additional eye complaints ENT: Reports system reviewed and no additional complaints, except as documented Cardiovascular: Cardiovascular: Reports no additional cardiovascular complaints Respiratory: Respiratory: Reports no addit
[2020-06-02] MEDS: ASPIRIN 81 MG CHEWABLE TABLET 243 MG PO (11:00)
[2020-06-02 14:09] LABS: Add Urine Microscopic? YES; Appearance Urine Clear (Clear); Bilirubin Urine Negative (Negative); Blood Urine 2+ (Negative); Color Urine Colorless (Yellow); Glucose Urine UA Negative (Negative); Ketones Urine Negative (Negative); Leukocyte Esterase Ur Negative LEU/UL (NEGATIVE); Nitrate Urine Negative (Negative); Protein Urine Negative (Negative); RBC Urine 0-2 /hpf (0-2); Specific Grav Ur 1.006 (1.001-1.035); Urobilinogen Urine Negative mg/dL (<2.0); WBC Urine 0-3 /hpf (0-3)
[2020-06-02] MEDS: SODIUM CHLORIDE 0.9% IV 1,000 ML 75 ML IV CONT (15:02)
[2020-06-02] MEDS: GABAPENTIN 300 MG CAPSULE PO (20:49)
[2020-06-02] MEDS: ACETAMINOPHEN 325 MG TABLET 650 MG PO (20:58)
[2020-06-03] VITALS (12 sets, daily range): BP systolic 128–151; BP diastolic 70–97; PULSE 74–86; RESP 16–20; TEMP 36.3–37; O2SAT 99–100
[2020-06-03] MEDS: SODIUM CHLORIDE 0.9% IV 1,000 ML 75 ML IV CONT ×2 (03:33→16:50)
[2020-06-03 04:34] LABS: Basophils Percent Auto 0.2 % (0.2-1.2); Eosinophils Absolute Auto 0.2 K/mm3 (0-0.3); Eosinophils Percent Auto 2.4 % (0-4.4); Hematocrit 38.2 % (42.0-52.0); Hemoglobin 13.1 g/dL (14.0-18.0); Immature Granulocyte Absolute 0.03 K/mm3 (0.00-0.031); Immature Granulocyte Percent A 0.3 % (0-0.5); Lymphocytes Absolute Auto 2.26 K/mm3 (0.9-3.2); Lymphocytes Percent Auto 24.3 % (18.3-44.2); Mean Corpuscular HGB Conc 34.3 g/dl (32-36); Mean Corpuscular Hemoglobin 30.3 pg (26-34); Mean Corpuscular Volume 88.2 fl (80-100); Mean Platelet Volume 12.5 fl (7.4-10.4); Monocytes Absolute Auto 0.7 K/mm3 (0.1-0.6); Monocytes Percent Auto 7.3 % (2.6-8.5); Neutrophils Absolute Auto 6.1 K/mm3 (1.3-6.7); Neutrophils Percent Auto 65.5 % (45.5-73.1); Platelet Count Result 134 k/mm3 (150-375); Red Blood Count 4.33 M/mm3 (4.6-6.20); White Blood Count 9.3 K/mm3 (4.5-10.0)
[2020-06-03 04:55] LABS: Alanine Aminotransferase 213 U/L (4-50); Albumin Level 3.1 g/dL (3.5-5.1); Alkaline Phosphatase 57 U/L (38-126); Aspartate Amino Transferase 459 U/L (17-59); Bilirubin,Total 0.5 mg/dL (0.2-1.3); Blood Urea Nitrogen 19 mg/dL (9-20); Calcium 8.1 mg/dL (8.4-10.2); Carbon Dioxide 33 mmol/L (22-30); Chloride 101 mmol/L (98-107); Estimated CRCL calculation 42 ml/min; Estimated Glomerular Filt Rate 47; Glucose 109 mg/dL (75-110); Magnesium 2.1 mg/dL (1.6-2.3); Phosphorus 3.5 mg/dL (2.5-4.5); Potassium 3.8 mmol/L (3.4-5.0); Sodium 137 mmol/L (137-145)
[2020-06-03 05:28] LABS: Creatine Kinase > 16000 U/L (55-170)
[2020-06-03] MEDS: PANTOPRAZOLE 40 MG TABLET PO ×2 (08:16→16:50)
[2020-06-03] MEDS: ASPIRIN 325 MG ENTERIC TABLET PO (08:16)
[2020-06-03] MEDS: NICOTINE (*PBKC) 14 MG PATCH 1 PATCH TRANSDERM (08:16)
--- NOTE | 2020-06-03 08:22 | PM.PNNEP ---
Progress Note: A&P Assessment and Plan (1) Acute kidney injury: Code(s): N17.9 - Acute kidney failure, unspecified Status: Acute Assessment and Plan: The patient has acute renal failure. Renal ultrasound shows some small stones. The right kidney is small. No acute findings. He has a very high CPK and had brown urine on admission. Most likely this is rhabdomyolysis induced acute kidney injury. UA showed a pH of 9. So he is adequately alkalinized. So I switched him to normal saline last evening. His urine does show some blood but the urine is colorless. Greater than 16,000, however AST and ALT are both better. His creatinine is down a little bit. (2) Rhabdomyolysis: Qualifiers: Rhabdomyolysis type: non-traumatic Qualified Code(s): M62.82 - Rhabdomyolysis Code(s): M62.82 - Rhabdomyolysis Status: Acute Assessment and Plan: Etiology most likely due to pressure related necrosis of muscle. His liver enzymes are high also and probably these enzymes are coming from the muscle as well. Since his CK is listed at greater than 16,000, we are using the ALT and AST as surogates to make sure the rhabdomyolysis is improving. Long talk with the patient. (3) Right leg weakness: Code(s): R29.898 - Other symptoms and signs involving the musculoskeletal system Status: Acute Assessment and Plan: He has had a stroke in the past. Strokes in the posterior circulation. An echocardiogram was done which shows no source of clot. (4) H/O: HTN (hypertension): Code(s): Z86.79 - Personal history of other diseases of the circulatory system Status: Chronic Assessment and Plan: Blood pressure is under good control. (5) Drug abuse: Code(s): F19.10 - Other psychoactive substance abuse, uncomplicated Status: Acute (6) GERD (gastroesophageal reflux disease): Qualifiers: Esophagitis presence: esophagitis presence not specified Qualified Code(s): K21.9 - Gastro-esophageal reflux disease without esophagitis Code(s): K21.9 - Gastro-esophageal reflux disease without esophagitis Status: Chronic Assessment and Plan: No symptoms. Subjective Date/time seen: 06/03/20 08:22 Interval history: Patient is a bit weepy today. He is overwhelmed with everything going on. He says that his right foot weakness has improved back to his usual. Urine is still clear. Review of Systems Cardiovascular: Cardiovascular: Reports no additional cardiovascular complaints Respiratory: Respiratory: Reports no additional respiratory complaints Gastrointestinal: Gastrointestinal: Reports no additional gastrointestinal complaints Genitourinary: Genitourinary: Reports no additional male genitourinary complaints Exam Narrative: Exam Narrative: WDWN in NAD skin no rash head ncat lungs clear cor reg no rub abd BS+ nontender and soft ext no edema. Objective Data Vital Signs Vital Signs: Vital Signs - 24 hr 06/02/20 10:00 06/02/20 12:00 06/02/20 12:30 Temperature 36.4 C Pulse Rate 92 88 85 Respiratory Rate 18 Blood Pressure 135/84 Pulse Oximetry 100 06/02/20 14:00 06/02/20 16:00 06/02/20 16:33 Temperature 36.4 C Pulse Rate 86 79 86 Respiratory Rate 20 Blood Pressure 98/51 L Pulse Oximetry 100 06/02/20 18:00 06/02/20 20:00 06/02/20 22:00 Temperature 37.1 C Pulse Rate 83 82 80 Respiratory Rate 18 Blood Pressure 138/65 Pulse Oximetry 100 06/02/20 23:56 06/03/20 00:00 06/03/20 02:00 Temperature 36.7 C Pulse Rate 84 79 83 Respiratory Rate 20 Blood Pressure 118/80 Pulse Oximetry 98 06/03/20 04:00 06/03/20 06:00 Temperature 36.7 C Pulse Rate 83 86 Respiratory Rate 18 Blood Pressure 128/70 Pulse Oximetry 99 Intake/Output Intake/Output: Intake & Output 05/31/20 06/01/20 06/02/20 06/03/20 23:59 23:59 23:59 23:59 Intake Total 1999 3576 9635
--- NOTE | 2020-06-03 13:56 | PM.IMPN ---
Progress Note: A&P Assessment and Plan (1) Right leg weakness: Code(s): R29.898 - Other symptoms and signs involving the musculoskeletal system Status: Acute Assessment and Plan: Patient has hx of CVA and right sided weakness but with worsening symtpoms. MRI 06/01 showing acute infarcts in the left occipital lobe and bilateral cerebellum. Echo showing grade 1 diastolic dysfunction with EF of 60-65% and no shunt. Carotid US normal. He takes baby ASA chronically. Monitor blood pressure and allow for permissive HTN. Neurology following. Increased to full aspirin. Continue PT and OT. TRC consult ordered. (2) Rhabdomyolysis: Qualifiers: Rhabdomyolysis type: non-traumatic Qualified Code(s): M62.82 - Rhabdomyolysis Code(s): M62.82 - Rhabdomyolysis Status: Acute Assessment and Plan: Appears to be secondary to the patient laying on the ground for hours. Total CK still greater than 16,000. Creatinine better and AST/ALT trending down. Elevated troponin is noted but more likely related to the rhabdomyolysis. IV fluids with bicarb changed to NS. Continue aggressive IV hydration. Appreciate Nephrology input. (3) Drug abuse: Code(s): F19.10 - Other psychoactive substance abuse, uncomplicated Status: Acute Assessment and Plan: Patient has been counseled about the benefits of abstaining from drug use. It has been explained that cocaine may have contributed to his stroke. (4) Hyperlipidemia: Qualifiers: Hyperlipidemia type: unspecified Qualified Code(s): E78.5 - Hyperlipidemia, unspecified Code(s): E78.5 - Hyperlipidemia, unspecified Status: Chronic Assessment and Plan: Lipid panel noted. Lipitor on hold due to rhabdomyolysis. (5) GERD (gastroesophageal reflux disease): Qualifiers: Esophagitis presence: esophagitis presence not specified Qualified Code(s): K21.9 - Gastro-esophageal reflux disease without esophagitis Code(s): K21.9 - Gastro-esophageal reflux disease without esophagitis Status: Chronic Assessment and Plan: Stable. Continue Protonix. (6) H/O: HTN (hypertension): Code(s): Z86.79 - Personal history of other diseases of the circulatory system Status: Chronic Assessment and Plan: Blood pressure reviewed on 06/03/2020. Blood pressure mostly well controlled. Patient's lisinopril on hold. Continue to monitor. (7) Acute kidney injury: Code(s): N17.9 - Acute kidney failure, unspecified Status: Acute Assessment and Plan: Cr 1.7 on admission. Unclear of he has underlying CKD. Creatinine worsened to 2.1 felt related to the rhabdomyolysis. Cr better today. Renal ultrasound showing small right kidney. Nephrology following. Continue to monitor. Subjective Date/time seen: 06/03/20 13:56 Interval history: Date of visit 06/03. 59yo male with HTN and hx of left cerebral infarction with right hemiparesis presented with increasing right sided weakness. Had been lying on the floor for some time when he fell and CK markedly elevated. Right foot numbness resolved. Slept well. Walking in [place] with therapy. No n/v. Eating okay. Exam Narrative: Exam Narrative: AF 146/83 83 20 99% Gen - NARD lying semi recumbent in bed Chest - CTA bilaterally CV - RRR S1/S2 Abd - Soft, NT/ND, Positive BS Ext - No pedal edema; mild right UE edema Neuro -right-sided hemiparesis Psych - Nml mood and affect. Skin - Warm and dry Objective Data Vital Signs Vital Signs: Vital Signs - 24 hr 06/02/20 14:00 06/02/20 16:00 06/02/20 16:33 Temperature 97.6 F Pulse Rate 86 79 86 Respiratory Rate 20 Blood Pressure 98/51 L Pulse Oximetry 100 06/02/20 18:00 06/02/20 20:00 06/02/20 22:00 Temperature 98.7 F Pulse Rate 83 82 80 Respiratory Rate 18 Blood Pressure 138/65 Pulse Oximetry 100 06/02/20 23:56 06/03/20 00:00 0
--- NOTE | 2020-06-03 14:13 | WPDNEURCNPN ---
Assessment and Plan Assessment and plan (1) Acute kidney injury: Code(s): N17.9 - Acute kidney failure, unspecified Status: Acute (2) GERD (gastroesophageal reflux disease): Qualifiers: Esophagitis presence: esophagitis presence not specified Qualified Code(s): K21.9 - Gastro-esophageal reflux disease without esophagitis Code(s): K21.9 - Gastro-esophageal reflux disease without esophagitis Status: Chronic (3) Hyperlipidemia: Qualifiers: Hyperlipidemia type: unspecified Qualified Code(s): E78.5 - Hyperlipidemia, unspecified Code(s): E78.5 - Hyperlipidemia, unspecified Status: Chronic (4) Drug abuse: Code(s): F19.10 - Other psychoactive substance abuse, uncomplicated Status: Acute (5) H/O: HTN (hypertension): Code(s): Z86.79 - Personal history of other diseases of the circulatory system Status: Chronic (6) Rhabdomyolysis: Qualifiers: Rhabdomyolysis type: non-traumatic Qualified Code(s): M62.82 - Rhabdomyolysis Code(s): M62.82 - Rhabdomyolysis Status: Acute (7) Right leg weakness: Code(s): R29.898 - Other symptoms and signs involving the musculoskeletal system Status: Acute (8) Stroke: Code(s): I63.9 - Cerebral infarction, unspecified Status: Acute Additional Plan continue present medical management will follow Consult date: 06/03/20 Time Seen: 14:00 HPI: Nicho Padron is a 59 year old male who was admitted because of medical issues including increased right leg weakness superimposed on the previous history of having had a stroke in the past and has right-sided spastic hemiparesis but the a brain MRI also reveals some new infarcts the patient is on aspirin and getting the medical management for his underlying medical issues of acute kidney injury hyperlipidemia has a history of drug abuse hypertension rhabdomyolysis and increasing leg weakness he feels that he has improved and is better denies any headache nausea vomiting chest pain shortness of breath fever chills sore throat Review of Systems Review of Systems: All systems reviewed & are unremarkable except as noted in HPI and below PMFSH Past Medical History Medical History GERD (gastroesophageal reflux disease) H/O: HTN (hypertension) History of CVA (cerebrovascular accident) Hyperlipidemia Surgical History Surgical History History of tonsillectomy Family History Family History Mother Heart attack Father Hypertension Social History Social History Smoking packs per day: 0.5 Smoking cigarettes per day: 10.0 Years smoked: 30 Smoking pack-years: 15.00 Smoking status: Current every day smoker Tobacco type: cigarettes Alcohol intake: current Drinks per week: 1 Substance use: current Substance use type: marijuana, crack/cocaine and methamphetamine Gender identity (if verbalized by the patient): Male Spiritual care concerns: No Meds Home Medications and Allergies Home Medications Medication Instructions Recorded Confirmed Type aspirin 81 mg PO DAILY 05/31/20 05/31/20 History atorvastatin 40 mg PO HS 05/31/20 05/31/20 History gabapentin 300 mg PO HS 05/31/20 05/31/20 History lisinopril 5 mg PO DAILY 05/31/20 05/31/20 History omeprazole 40 mg PO DAILY 05/31/20 05/31/20 History Allergies Allergy/AdvReac Type Severity Reaction Status Date / Time No Known Allergies Allergy Verified 05/31/20 18:16 Vital Signs Vital Signs - 24 hr 06/02/20 16:00 06/02/20 16:33 06/02/20 18:00 Temperature 36.4 C Pulse Rate 79 86 83 Respiratory Rate 20 Blood Pressure 98/51 L Pulse Oximetry 100 06/02/20 20:00 06/02/20 22:00 06/02/20 23:56 Temperature 37.1 C 36.7 C Pulse Rate 82
[2020-06-03 15:32] LABS: Add Urine Microscopic? YES; Appearance Urine Clear (Clear); Bilirubin Urine Negative (Negative); Blood Urine 2+ (Negative); Color Urine Colorless (Yellow); Glucose Urine UA Negative (Negative); Ketones Urine Negative (Negative); Leukocyte Esterase Ur Negative LEU/UL (NEGATIVE); Nitrate Urine Negative (Negative); Protein Urine Negative (Negative); RBC Urine 0-2 /hpf (0-2); Specific Grav Ur 1.006 (1.001-1.035); Squamous Epithelial Cell Urine Rare /hpf (Few); Urobilinogen Urine Negative mg/dL (<2.0); WBC Urine 0-3 /hpf (0-3)
--- NOTE | 2020-06-03 19:36 | PC.NURSE ---
This patient, Nicho Padron, was transferred to [[id number] ] on 06/03/20 at 1930. Personal belongings sent with patient. Belongings list checked and signed with receiving [ ]. Report given to [ Mar WORLEY]. Appropriate documentation sent with patient.
[2020-06-03] MEDS: GABAPENTIN 300 MG CAPSULE PO (22:23)
--- NOTE | 2020-06-04 05:11 | PC.NURSE ---
This patient, Nicho Padron, was received from [ ] on 06/03/20 at 1930. Personal belongings list checked and signed. Patient/family oriented to unit policies and routines
[2020-06-04 06:00] VITALS: BP 136/67; PULSE 73; RESP 18; TEMP 36.6; O2SAT 98
[2020-06-04] MEDS: SODIUM CHLORIDE 0.9% IV 1,000 ML 75 ML IV CONT ×2 (06:30→17:38)
[2020-06-04 06:40] LABS: Hematocrit 39.8 % (42.0-52.0); Hemoglobin 13.4 g/dL (14.0-18.0); Mean Corpuscular HGB Conc 33.7 g/dl (32-36); Mean Corpuscular Hemoglobin 29.4 pg (26-34); Mean Corpuscular Volume 87.3 fl (80-100); Mean Platelet Volume 11.8 fl (7.4-10.4); Platelet Count Result 158 k/mm3 (150-375); Red Blood Count 4.56 M/mm3 (4.6-6.20); Red Cell Distribution Width 11.9 % (11.5-14.5); White Blood Count 8.7 K/mm3 (4.5-10.0)
[2020-06-04 07:03] LABS: Alanine Aminotransferase 177 U/L (4-50); Albumin Level 3.2 g/dL (3.5-5.1); Alkaline Phosphatase 57 U/L (38-126); Aspartate Amino Transferase 270 U/L (17-59); Bilirubin Indirect 0.7 mg/dL (0-1.1); Bilirubin,Total 0.5 mg/dL (0.2-1.3); Blood Urea Nitrogen 15 mg/dL (9-20); Calcium 8.7 mg/dL (8.4-10.2); Carbon Dioxide 27 mmol/L (22-30); Chloride 106 mmol/L (98-107); Estimated CRCL calculation 47 ml/min; Estimated Glomerular Filt Rate 54; Glucose 100 mg/dL (75-110); Magnesium 1.9 mg/dL (1.6-2.3); Phosphorus 3.7 mg/dL (2.5-4.5); Potassium 4.2 mmol/L (3.4-5.0); Sodium 136 mmol/L (137-145)
[2020-06-04 08:10] LABS: Creatine Kinase 10903 U/L (55-170)
--- NOTE | 2020-06-04 08:34 | PM.PNNEP ---
Progress Note: A&P Assessment and Plan (1) Acute kidney injury: Code(s): N17.9 - Acute kidney failure, unspecified Status: Acute Assessment and Plan: The patient has acute renal failure. Renal ultrasound shows some small stones. The right kidney is small. No acute findings. He has a very high CPK and had brown urine on admission. Most likely this is rhabdomyolysis induced acute kidney injury. His bicarbonate level is down to 27. His urine pH is still 9. His CPK has fallen to around 10,000. His creatinine has fallen to 1.6. Will continue with isotonic saline. (2) Rhabdomyolysis: Qualifiers: Rhabdomyolysis type: non-traumatic Qualified Code(s): M62.82 - Rhabdomyolysis Code(s): M62.82 - Rhabdomyolysis Status: Acute Assessment and Plan: Etiology most likely due to pressure related necrosis of muscle. CPK is improved. (3) Right leg weakness: Code(s): R29.898 - Other symptoms and signs involving the musculoskeletal system Status: Acute Assessment and Plan: He has had a stroke in the past. Strokes in the posterior circulation. An echocardiogram was done which shows no source of clot. (4) H/O: HTN (hypertension): Code(s): Z86.79 - Personal history of other diseases of the circulatory system Status: Chronic Assessment and Plan: Blood pressure is under good control. (5) Drug abuse: Code(s): F19.10 - Other psychoactive substance abuse, uncomplicated Status: Acute (6) GERD (gastroesophageal reflux disease): Qualifiers: Esophagitis presence: esophagitis presence not specified Qualified Code(s): K21.9 - Gastro-esophageal reflux disease without esophagitis Code(s): K21.9 - Gastro-esophageal reflux disease without esophagitis Status: Chronic Assessment and Plan: No symptoms. Subjective Date/time seen: 06/04/20 08:34 Interval history: Patient is in good spirits today. He is overwhelmed with everything going on. Right foot feels okay. It is not heavy and it is not tingling Review of Systems Cardiovascular: Cardiovascular: Reports no additional cardiovascular complaints Respiratory: Respiratory: Reports no additional respiratory complaints Gastrointestinal: Gastrointestinal: Reports no additional gastrointestinal complaints Genitourinary: Genitourinary: Reports no additional male genitourinary complaints Exam Narrative: Exam Narrative: WDWN in NAD skin no rash or subcu nodules head ncat lungs clear bilaterally cor reg no rub abd BS+ nontender and soft ext no edema. Objective Data Vital Signs Vital Signs: Vital Signs - 24 hr 06/03/20 10:00 06/03/20 12:00 06/03/20 14:00 Temperature 36.6 C Pulse Rate 80 80 84 Respiratory Rate 20 Blood Pressure 146/83 H Pulse Oximetry 99 06/03/20 16:00 06/03/20 18:00 06/03/20 19:25 Temperature 36.3 C L 36.9 C Pulse Rate 76 79 80 Respiratory Rate 18 18 Blood Pressure 138/85 147/90 H Pulse Oximetry 100 100 06/03/20 22:00 06/04/20 06:00 Temperature 37.0 C 36.6 C Pulse Rate 78 73 Respiratory Rate 18 18 Blood Pressure 139/75 136/67 Pulse Oximetry 99 98 Intake/Output Intake/Output: Intake & Output 06/01/20 06/02/20 06/03/20 06/04/20 23:59 23:59 23:59 23:59 Intake Total 4480 6217 3333 1000 Output Total 1475 4475 2690 1175 Balance 3005 1742 643 -175 Meds/Results Medications: Active Medications Generic Name Dose Route Start Last Admin Trade Name Freq PRN Reason Stop Dose Admin Acetaminophen 650 mg 06/01/20 00:29 06/02/20 20:58 Tylenol Tablet PO 650 mg Q4H PRN Administration Mild Pain (1-3) or Fever Aspirin 325 mg 06/03/20 09:00 06/03/20 08:16 Aspirin Ec PO 325 mg QAM SAMANTHA Administration Gabapentin 300 mg 06/01/20 00:35 06/03/20 22:23 Neurontin PO 300 mg HS SAMANTHA Administration Sodium Chloride 1,000 mls @ 75 mls/hr 06/02/20 14:20
--- NOTE | 2020-06-04 09:59 | PM.IMPN ---
Progress Note: A&P Assessment and Plan (1) Right leg weakness: Code(s): R29.898 - Other symptoms and signs involving the musculoskeletal system Status: Acute Assessment and Plan: Patient has hx of CVA and right sided weakness but with worsening symtpoms. MRI 06/01 showing acute infarcts in the left occipital lobe and bilateral cerebellum. Echo showing grade 1 diastolic dysfunction with EF of 60-65% and no shunt. Carotid US normal. He takes baby ASA chronically that was increased to full. Monitor blood pressure and allow for permissive HTN. Neurology following. Continue PT and OT. TRC consult ordered. Resume tele dine he will be here for a few more days due to the rhabdo. (2) Rhabdomyolysis: Qualifiers: Rhabdomyolysis type: non-traumatic Qualified Code(s): M62.82 - Rhabdomyolysis Code(s): M62.82 - Rhabdomyolysis Status: Acute Assessment and Plan: Appears to be secondary to the patient laying [place] [address]. Creatinine better and AST/ALT trending down. Elevated troponin is noted but more likely related to the rhabdomyolysis. IV fluids with bicarb changed to NS. Continue aggressive IV hydration. Appreciate Nephrology input. (3) Drug abuse: Code(s): F19.10 - Other psychoactive substance abuse, uncomplicated Status: Acute Assessment and Plan: Patient has been counseled about the benefits of abstaining from drug use. It has been explained that cocaine may have contributed to his stroke. (4) Hyperlipidemia: Qualifiers: Hyperlipidemia type: unspecified Qualified Code(s): E78.5 - Hyperlipidemia, unspecified Code(s): E78.5 - Hyperlipidemia, unspecified Status: Chronic Assessment and Plan: Lipid panel noted. Lipitor on hold due to rhabdomyolysis. (5) GERD (gastroesophageal reflux disease): Qualifiers: Esophagitis presence: esophagitis presence not specified Qualified Code(s): K21.9 - Gastro-esophageal reflux disease without esophagitis Code(s): K21.9 - Gastro-esophageal reflux disease without esophagitis Status: Chronic Assessment and Plan: Stable. Continue Protonix. (6) H/O: HTN (hypertension): Code(s): Z86.79 - Personal history of other diseases of the circulatory system Status: Chronic Assessment and Plan: Blood pressure reviewed on 06/04/2020. Blood pressure well controlled. Patient's lisinopril on hold. Continue to monitor. (7) Acute kidney injury: Code(s): N17.9 - Acute kidney failure, unspecified Status: Acute Assessment and Plan: Cr 1.7 on admission. Unclear of he has underlying CKD. Creatinine worsened to 2.1 felt related to the rhabdomyolysis. Cr better today. Renal ultrasound showing small right kidney. Nephrology following. Continue to monitor. Subjective Date/time seen: 06/04/20 09:59 Interval history: 59yo male with HTN and hx of left cerebral infarction with right hemiparesis presented with increasing right sided weakness. Had been lying on the floor for some time when he fell and CK markedly elevated. Date of visit 06/04: Right leg and foot numbness has resolved. Patient up walking the 5skillss therapy. Eating normally. No nausea or vomiting. Normal bowel movements. No chest pain or shortness of breath. Slept well. Exam Narrative: Exam Narrative: AF 136/67 73 18 98% ra Gen - NARD sitting up in a chair Chest - CTA bilaterally CV - RRR S1/S2 Abd - Soft, NT/ND, Positive BS Ext - No pedal edema; mild right UE edema Neuro -right-sided hemiparesis Psych - Nml mood and affect. In good spirits Skin - Warm and dry Objective Data Vital Signs Vital Signs: Vital Signs - 24 hr 06/03/20 10:00 06/03/20 12:00 06/03/20 14:00 Temperature 97.9 F Pulse Rate 80 80 84 Respiratory Rate 20 Blood Pressure 146/83 H Pulse Oximetry 99 06/03/20 16:00 06/03/20
[2020-06-04] MEDS: ASPIRIN 325 MG ENTERIC TABLET PO (10:35)
[2020-06-04] MEDS: NICOTINE (*PBKC) 14 MG PATCH 1 PATCH TRANSDERM (10:35)
[2020-06-04] MEDS: PANTOPRAZOLE 40 MG TABLET PO ×2 (10:35→17:38)
[2020-06-04 12:00] VITALS: PULSE 63
[2020-06-04 14:00] VITALS: BP 150/90; PULSE 72; RESP 16; TEMP 36.6; O2SAT 99
[2020-06-04 16:00] VITALS: PULSE 74
[2020-06-04 20:00] VITALS: PULSE 70
[2020-06-04 22:00] VITALS: BP 152/84; PULSE 60; RESP 18; TEMP 37; O2SAT 100
[2020-06-05] VITALS (9 sets, daily range): BP systolic 138–152; BP diastolic 60–82; PULSE 59–95; RESP 18–20; TEMP 36.6–37; O2SAT 72–100
[2020-06-05 06:28] LABS: Hematocrit 41.3 % (42.0-52.0); Hemoglobin 14.1 g/dL (14.0-18.0); Mean Corpuscular HGB Conc 34.1 g/dl (32-36); Mean Corpuscular Hemoglobin 29.7 pg (26-34); Mean Corpuscular Volume 86.9 fl (80-100); Platelet Count Result 164 k/mm3 (150-375); Red Blood Count 4.75 M/mm3 (4.6-6.20); Red Cell Distribution Width 11.8 % (11.5-14.5); White Blood Count 8.4 K/mm3 (4.5-10.0)
[2020-06-05 06:41] LABS: Alanine Aminotransferase 144 U/L (4-50); Albumin Level 3.1 g/dL (3.5-5.1); Alkaline Phosphatase 55 U/L (38-126); Aspartate Amino Transferase 167 U/L (17-59); Bilirubin,Total 0.5 mg/dL (0.2-1.3); Blood Urea Nitrogen 17 mg/dL (9-20); Calcium 8.7 mg/dL (8.4-10.2); Carbon Dioxide 25 mmol/L (22-30); Chloride 107 mmol/L (98-107); Estimated CRCL calculation 56 ml/min; Estimated Glomerular Filt Rate > 60; Glucose 98 mg/dL (75-110); Magnesium 1.8 mg/dL (1.6-2.3); Potassium 4.1 mmol/L (3.4-5.0); Sodium 138 mmol/L (137-145)
[2020-06-05 06:58] LABS: Creatine Kinase 5435 U/L (55-170)
[2020-06-05] MEDS: ASPIRIN 325 MG ENTERIC TABLET PO (08:26)
[2020-06-05] MEDS: PANTOPRAZOLE 40 MG TABLET PO ×2 (08:26→17:55)
[2020-06-05] MEDS: NICOTINE (*PBKC) 14 MG PATCH 1 PATCH TRANSDERM (08:26)
--- NOTE | 2020-06-05 10:12 | PCPTNOTE ---
Patient declined gait and exercises at this time. Pt states that he is not having a good day today.
--- NOTE | 2020-06-05 11:34 | PM.IMPN ---
Progress Note: A&P Assessment and Plan (1) Right leg weakness: Code(s): R29.898 - Other symptoms and signs involving the musculoskeletal system Status: Acute Assessment and Plan: Patient has hx of CVA and right sided weakness but with worsening symtpoms. MRI 06/01 showing acute infarcts in the left occipital lobe and bilateral cerebellum. Echo showing grade 1 diastolic dysfunction with EF of 60-65% and no shunt. Carotid US normal. He takes baby ASA chronically that was increased to full. Monitor blood pressure and allow for permissive HTN for the next day or so then start anti-HTN medications. Neurology following. Continue PT and OT. Continue tele. (2) Rhabdomyolysis: Qualifiers: Rhabdomyolysis type: non-traumatic Qualified Code(s): M62.82 - Rhabdomyolysis Code(s): M62.82 - Rhabdomyolysis Status: Acute Assessment and Plan: Appears to be secondary to the patient laying on the ground for hours. Total [place] better at 5430. Creatinine better and AST/ALT trending down. Elevated troponin is noted but more likely related to the rhabdomyolysis. IV fluids with bicarb changed to NS. Toelrating the aggressive IV hydration. Appreciate Nephrology input. Consider Lasix. (3) Drug abuse: Code(s): F19.10 - Other psychoactive substance abuse, uncomplicated Status: Acute Assessment and Plan: Patient has been counseled about the benefits of abstaining from drug use. It has been explained that cocaine may have contributed to his stroke. (4) Hyperlipidemia: Qualifiers: Hyperlipidemia type: unspecified Qualified Code(s): E78.5 - Hyperlipidemia, unspecified Code(s): E78.5 - Hyperlipidemia, unspecified Status: Chronic Assessment and Plan: Lipid panel noted. Lipitor on hold due to rhabdomyolysis. (5) GERD (gastroesophageal reflux disease): Qualifiers: Esophagitis presence: esophagitis presence not specified Qualified Code(s): K21.9 - Gastro-esophageal reflux disease without esophagitis Code(s): K21.9 - Gastro-esophageal reflux disease without esophagitis Status: Chronic Assessment and Plan: Stable. Continue Protonix. (6) H/O: HTN (hypertension): Code(s): Z86.79 - Personal history of other diseases of the circulatory system Status: Chronic Assessment and Plan: Blood pressure reviewed on 06/05/2020. Blood pressure reasonably well controlled. Patient's lisinopril on hold. Continue to monitor. (7) Acute kidney injury: Code(s): N17.9 - Acute kidney failure, unspecified Status: Acute Assessment and Plan: Cr 1.7 on admission. Unclear of he has underlying CKD. Creatinine worsened to 2.1 felt related to the rhabdomyolysis. Cr better at 1.3 today. Renal ultrasound showing small right kidney. Nephrology following. Continue to monitor. Subjective Date/time seen: 06/05/20 11:34 Interval history: 59yo male with HTN and hx of left cerebral infarction with right hemiparesis presented with increasing right sided weakness. Had been lying on the floor for some time when he fell and CK markedly elevated. Date of visit 06/05: Feeling well. No CP or SOB. Eating okay. Walking in halls. Exam Narrative: Exam Narrative: AF 152/80 65 18 97% ra Gen - NARD Chest - CTA bilaterally, nml RR CV - RRR S1/S2; Tele showing no significant dysrhythmias Abd - Soft, NT/ND, Positive BS Ext - No pedal edema Neuro -right-sided hemiparesis Psych - Nml mood and affect. Skin - Warm and dry Objective Data Vital Signs Vital Signs: Vital Signs - 24 hr 06/04/20 12:00 06/04/20 14:00 06/04/20 16:00 Temperature 97.8 F Pulse Rate 63 72 74 Respiratory Rate 16 Blood Pressure 150/90 H Pulse Oximetry 99 06/04/20 20:00 06/04/20 22:00 06/05/20 00:00 Temperature 98.6 F Pulse Rate 70 60 64 Respiratory Rate 18 Blood Pressure 152/84 H Pulse Oximetry
[2020-06-05 16:07] LABS: Add Urine Microscopic? YES; Appearance Urine Clear (Clear); Bilirubin Urine Negative (Negative); Blood Urine 1+ (Negative); Color Urine Colorless (Yellow); Glucose Urine UA Negative (Negative); Ketones Urine Negative (Negative); Leukocyte Esterase Ur Negative LEU/UL (NEGATIVE); Nitrate Urine Negative (Negative); Protein Urine Negative (Negative); RBC Urine 0-2 /hpf (0-2); Specific Grav Ur 1.009 (1.001-1.035); Urobilinogen Urine Negative mg/dL (<2.0); WBC Urine 0-3 /hpf (0-3)
--- NOTE | 2020-06-05 16:40 | PM.PNNEP ---
Progress Note: A&P Assessment and Plan (1) Acute kidney injury: Code(s): N17.9 - Acute kidney failure, unspecified Status: Acute Assessment and Plan: The patient has acute renal failure. Renal ultrasound shows some small stones. The right kidney is small. No acute findings. He has a very high CPK and had brown urine on admission. Most likely this is rhabdomyolysis induced acute kidney injury. His bicarbonate level is down to 25. Urine pH is down to 6. His urine still shows some blood in the urine. His CPK has fallen to around 5000. His creatinine has fallen to normal Will change IV fluids to half-normal saline with some bicarb. (2) Rhabdomyolysis: Qualifiers: Rhabdomyolysis type: non-traumatic Qualified Code(s): M62.82 - Rhabdomyolysis Code(s): M62.82 - Rhabdomyolysis Status: Acute Assessment and Plan: Etiology most likely due to pressure related necrosis of muscle. CPK is improved. (3) Right leg weakness: Code(s): R29.898 - Other symptoms and signs involving the musculoskeletal system Status: Acute Assessment and Plan: He has had a stroke in the past. Strokes in the posterior circulation. An echocardiogram was done which shows no source of clot. (4) H/O: HTN (hypertension): Code(s): Z86.79 - Personal history of other diseases of the circulatory system Status: Chronic Assessment and Plan: Blood pressure is under good control. (5) Drug abuse: Code(s): F19.10 - Other psychoactive substance abuse, uncomplicated Status: Acute (6) GERD (gastroesophageal reflux disease): Qualifiers: Esophagitis presence: esophagitis presence not specified Qualified Code(s): K21.9 - Gastro-esophageal reflux disease without esophagitis Code(s): K21.9 - Gastro-esophageal reflux disease without esophagitis Status: Chronic Assessment and Plan: No symptoms. Subjective Date/time seen: 06/05/20 16:40 Interval history: Patient is feeling better. Asking when he can go home. Foot is fine now. Urine is clear and almost colorless Review of Systems Cardiovascular: Cardiovascular: Reports no additional cardiovascular complaints Respiratory: Respiratory: Reports no additional respiratory complaints Gastrointestinal: Gastrointestinal: Reports no additional gastrointestinal complaints Genitourinary: Genitourinary: Reports no additional male genitourinary complaints Exam Narrative: Exam Narrative: WDWN in NAD skin no rash or subcu nodules head ncat lungs clear bilaterally cor reg no rub or gallop abd BS+ nontender and soft ext no edema or cyanosis Objective Data Vital Signs Vital Signs: Vital Signs - 24 hr 06/04/20 20:00 06/04/20 22:00 06/05/20 00:00 Temperature 37.0 C Pulse Rate 70 60 64 Respiratory Rate 18 Blood Pressure 152/84 H Pulse Oximetry 100 06/05/20 04:00 06/05/20 06:00 06/05/20 08:00 Temperature 36.9 C Pulse Rate 69 65 59 L Respiratory Rate 18 Blood Pressure 152/80 H Pulse Oximetry 97 06/05/20 12:00 06/05/20 14:00 Temperature 37.0 C Pulse Rate 72 65 Respiratory Rate 18 Blood Pressure 145/60 H Pulse Oximetry 100 Intake/Output Intake/Output: Intake & Output 06/02/20 06/03/20 06/04/20 06/05/20 23:59 23:59 23:59 23:59 Intake Total 6217 3333 2800 1110 Output Total 4475 2690 2075 1100 Balance 1742 643 725 10 Meds/Results Medications: Active Medications Generic Name Dose Route Start Last Admin Trade Name Freq PRN Reason Stop Dose Admin Acetaminophen 650 mg 06/01/20 00:29 06/02/20 20:58 Tylenol Tablet PO 650 mg Q4H PRN Administration Mild Pain (1-3) or Fever Aspirin 325 mg 06/03/20 09:00 06/05/20 08:26 Aspirin Ec PO 325 mg QAM SAMANTHA Administration Gabapentin 300 mg 06/01/20 00:35 06/04/20 20:14 Neurontin PO Not Given HS SAMANTHA Sodium Chloride 1,000 mls @ 75 mls/hr
[2020-06-05] MEDS: SODIUM BICARBONATE 8.4% 75 MEQ in SODIUM CHLORIDE 0.45% 1,000 ML IV CONT (17:51)
[2020-06-05] MEDS: GABAPENTIN 300 MG CAPSULE PO (20:47)
[2020-06-06] VITALS: PULSE 68
[2020-06-06 04:00] VITALS: PULSE 70
[2020-06-06 06:00] VITALS: BP 150/95; PULSE 67; RESP 20; TEMP 37.1; O2SAT 97
[2020-06-06 06:56] LABS: Blood Urea Nitrogen 20 mg/dL (9-20); Calcium 8.4 mg/dL (8.4-10.2); Carbon Dioxide 28 mmol/L (22-30); Chloride 103 mmol/L (98-107); Estimated CRCL calculation 67 ml/min; Estimated Glomerular Filt Rate > 60; Glucose 95 mg/dL (75-110); Potassium 4.2 mmol/L (3.4-5.0); Sodium 137 mmol/L (137-145)
[2020-06-06 07:03] LABS: Creatine Kinase 2881 U/L (55-170)
[2020-06-06 08:00] VITALS: PULSE 77
[2020-06-06] MEDS: SODIUM BICARBONATE 8.4% 75 MEQ in SODIUM CHLORIDE 0.45% 1,000 ML IV CONT ×2 (08:19→20:32)
[2020-06-06] MEDS: NICOTINE (*PBKC) 14 MG PATCH 1 PATCH TRANSDERM (08:21)
[2020-06-06] MEDS: ASPIRIN 325 MG ENTERIC TABLET PO (08:21)
[2020-06-06] MEDS: PANTOPRAZOLE 40 MG TABLET PO ×2 (08:21→18:03)
[2020-06-06] MEDS: polyethylene glycoL 3350 17 GM POWD.PACK PO (08:22)
--- NOTE | 2020-06-06 12:10 | PM.PNNEP ---
Progress Note: A&P Assessment and Plan (1) Acute kidney injury: Code(s): N17.9 - Acute kidney failure, unspecified Status: Acute Assessment and Plan: The patient has acute renal failure. Renal ultrasound shows some small stones. The right kidney is small. No acute findings. He has a very high CPK and had brown urine on admission. Most likely this is rhabdomyolysis induced acute kidney injury. His bicarbonate level is down to 25. Urine pH is down to 6. His urine still shows some blood in the urine. His CPK has fallen to around 2000. His creatinine has fallen to normal He is currently on half-normal saline with 75 of bicarb. We can continue this. If urinalysis shows no blood today we could probably stop the IV fluids. (2) Rhabdomyolysis: Qualifiers: Rhabdomyolysis type: non-traumatic Qualified Code(s): M62.82 - Rhabdomyolysis Code(s): M62.82 - Rhabdomyolysis Status: Acute Assessment and Plan: Etiology most likely due to pressure related necrosis of muscle. CPK is improved. Down to just over 2000 (3) Right leg weakness: Code(s): R29.898 - Other symptoms and signs involving the musculoskeletal system Status: Acute Assessment and Plan: He has had a stroke in the past. Strokes in the posterior circulation. An echocardiogram was done which shows no source of clot. (4) H/O: HTN (hypertension): Code(s): Z86.79 - Personal history of other diseases of the circulatory system Status: Chronic Assessment and Plan: Blood pressure is under good control. (5) Drug abuse: Code(s): F19.10 - Other psychoactive substance abuse, uncomplicated Status: Acute (6) GERD (gastroesophageal reflux disease): Qualifiers: Esophagitis presence: esophagitis presence not specified Qualified Code(s): K21.9 - Gastro-esophageal reflux disease without esophagitis Code(s): K21.9 - Gastro-esophageal reflux disease without esophagitis Status: Chronic Assessment and Plan: No symptoms. Subjective Date/time seen: 06/06/20 12:10 Interval history: Patient is feeling better. Eating and drinking well. Review of Systems Cardiovascular: Cardiovascular: Reports no additional cardiovascular complaints Respiratory: Respiratory: Reports no additional respiratory complaints Gastrointestinal: Gastrointestinal: Reports no additional gastrointestinal complaints Genitourinary: Genitourinary: Reports no additional male genitourinary complaints Exam Narrative: Exam Narrative: WDWN in NAD skin no rash or subcu nodules head ncat lungs clear to auscultation cor reg no rub or gallop abd BS+ nontender and soft ext no edema or cyanosis Objective Data Vital Signs Vital Signs: Vital Signs - 24 hr 06/05/20 14:00 06/05/20 16:00 06/05/20 20:00 Temperature 37.0 C Pulse Rate 65 64 66 Respiratory Rate 18 Blood Pressure 145/60 H Pulse Oximetry 100 06/05/20 22:00 06/06/20 00:00 06/06/20 04:00 Temperature 36.6 C Pulse Rate 95 68 70 Respiratory Rate 20 Blood Pressure 138/82 Pulse Oximetry 72 L 06/06/20 06:00 06/06/20 08:00 Temperature 37.1 C Pulse Rate 67 77 Respiratory Rate 20 Blood Pressure 150/95 H Pulse Oximetry 97 Intake/Output Intake/Output: Intake & Output 06/03/20 06/04/20 06/05/20 06/06/20 23:59 23:59 23:59 23:59 Intake Total 3333 2800 2160 1515 Output Total 2690 2075 2450 900 Balance 643 725 -290 615 Meds/Results Medications: Active Medications Generic Name Dose Route Start Last Admin Trade Name Leandro PRN Reason Stop Dose Admin Acetaminophen 650 mg 06/01/20 00:29 06/02/20 20:58 Tylenol Tablet PO 650 mg Q4H PRN Administration Mild Pain (1-3) or Fever Aspirin 325 mg 06/03/20 09:00 06/06/20 08:21 Aspirin Ec PO 325 mg QAM SAMANTHA Administration Gabapentin 300 mg 06/01/20 00:35 06/05/20 20:47 Neurontin PO 300 mg H
[2020-06-06 12:41] LABS: Add Urine Microscopic? YES; Appearance Urine Clear (Clear); Bilirubin Urine Negative (Negative); Blood Urine 1+ (Negative); Color Urine Straw (Yellow); Glucose Urine UA Negative (Negative); Ketones Urine Negative (Negative); Leukocyte Esterase Ur Negative LEU/UL (NEGATIVE); Nitrate Urine Negative (Negative); Protein Urine Negative (Negative); RBC Urine 0-2 /hpf (0-2); Specific Grav Ur 1.011 (1.001-1.035); Urobilinogen Urine Negative mg/dL (<2.0); WBC Urine 0-3 /hpf (0-3)
[2020-06-06 14:00] VITALS: BP 140/83; PULSE 68; RESP 20; TEMP 36.9; O2SAT 99
--- NOTE | 2020-06-06 16:06 | PM.IMPN ---
Progress Note: A&P Assessment and Plan (1) Right leg weakness: Code(s): R29.898 - Other symptoms and signs involving the musculoskeletal system Status: Acute Assessment and Plan: Patient has hx of CVA and right sided weakness but with worsening symtpoms. MRI 06/01 showing acute infarcts in the left occipital lobe and bilateral cerebellum. Echo showing grade 1 diastolic dysfunction with EF of 60-65% and no shunt. Carotid US normal. He takes baby ASA chronically that was increased to full. Monitor blood pressure and allow for permissive HTN for the next day or so then start anti-HTN medications. Neurology following. Continue PT and OT. Okay to stop tele. (2) Rhabdomyolysis: Qualifiers: Rhabdomyolysis type: non-traumatic Qualified Code(s): M62.82 - Rhabdomyolysis Code(s): M62.82 - Rhabdomyolysis Status: Acute Assessment and Plan: Appears to be secondary to the patient laying on the ground for hours. Total CK better at 2800. Creatinine better and AST/ALT trending down. Elevated troponin is noted but more likely related to the rhabdomyolysis. Continue IV fluids. Tolerating the aggressive IV hydration. Appreciate Nephrology input. Lasix once. (3) Drug abuse: Code(s): F19.10 - Other psychoactive substance abuse, uncomplicated Status: Acute Assessment and Plan: Patient has been counseled about the benefits of abstaining from drug use. It has been explained that cocaine may have contributed to his stroke. (4) Hyperlipidemia: Qualifiers: Hyperlipidemia type: unspecified Qualified Code(s): E78.5 - Hyperlipidemia, unspecified Code(s): E78.5 - Hyperlipidemia, unspecified Status: Chronic Assessment and Plan: Lipid panel noted. Lipitor on hold due to rhabdomyolysis. (5) GERD (gastroesophageal reflux disease): Qualifiers: Esophagitis presence: esophagitis presence not specified Qualified Code(s): K21.9 - Gastro-esophageal reflux disease without esophagitis Code(s): K21.9 - Gastro-esophageal reflux disease without esophagitis Status: Chronic Assessment and Plan: Stable. Continue Protonix. (6) H/O: HTN (hypertension): Code(s): Z86.79 - Personal history of other diseases of the circulatory system Status: Chronic Assessment and Plan: Blood pressure reviewed on 06/06/2020. Blood pressure reasonably well controlled. Patient's lisinopril on hold. Continue to monitor. (7) Acute kidney injury: Code(s): N17.9 - Acute kidney failure, unspecified Status: Acute Assessment and Plan: Cr 1.7 on admission. Unclear of he has underlying CKD. Creatinine worsened to 2.1 felt related to the rhabdomyolysis. Cr better at 1.1 today. Renal ultrasound showing small right kidney. Nephrology following. Continue to monitor. Subjective Date/time seen: 06/06/20 16:06 Interval history: 59yo male with HTN and hx of left cerebral infarction with right hemiparesis presented with increasing right sided weakness. Had been lying on the floor for some time when he fell and CK markedly elevated. Date of visit 06/06: Walking well with therapy. Eating normally. No pain or numbness in the RLE. Exam Narrative: Exam Narrative: AF 140/83 68 20 99% ra Gen - NARD sitting up in chair Chest - CTA bilaterally, nml RR CV - RRR S1/S2 with 2/6 murmur; Tele showing no significant dysrhythmias Abd - Soft, NT/ND, Positive BS Ext - No pedal edema. mild RUE edema Neuro -right-sided hemiparesis Psych - Nml mood and affect. Skin - Warm and dry Objective Data Vital Signs Vital Signs: Vital Signs - 24 hr 06/05/20 20:00 06/05/20 22:00 06/06/20 00:00 Temperature 97.9 F Pulse Rate 66 95 68 Respiratory Rate 20 Blood Pressure 138/82 Pulse Oximetry 72 L 06/06/20 04:00 06/06/20 06:00 06/06/20 08:00 Temperature 98.7 F Pulse Rate 70 67 77 Respiratory R
[2020-06-06] MEDS: FUROSEMIDE INJ 40 MG/4 ML VIAL 20 MG IV PUSH (18:03)
[2020-06-06] MEDS: GABAPENTIN 300 MG CAPSULE PO (20:32)
[2020-06-06 22:00] VITALS: BP 144/81; PULSE 83; RESP 18; TEMP 36.6; O2SAT 100
[2020-06-07] MEDS: ACETAMINOPHEN 325 MG TABLET 650 MG PO ×2 (03:00→08:51)
[2020-06-07 06:00] VITALS: BP 137/73; PULSE 77; RESP 20; TEMP 36.3; O2SAT 97
[2020-06-07 06:56] LABS: Albumin Level 3.3 g/dL (3.5-5.1); Blood Urea Nitrogen 20 mg/dL (9-20); Calcium 8.5 mg/dL (8.4-10.2); Carbon Dioxide 31 mmol/L (22-30); Chloride 102 mmol/L (98-107); Estimated CRCL calculation 61 ml/min; Estimated Glomerular Filt Rate > 60; Glucose 109 mg/dL (75-110); Phosphorus 3.6 mg/dL (2.5-4.5); Potassium 3.8 mmol/L (3.4-5.0); Sodium 137 mmol/L (137-145)
[2020-06-07 07:39] LABS: Creatine Kinase 2083 U/L (55-170)
[2020-06-07] MEDS: ASPIRIN 325 MG ENTERIC TABLET PO (08:44)
[2020-06-07] MEDS: NICOTINE (*PBKC) 14 MG PATCH 1 PATCH TRANSDERM (08:44)
[2020-06-07] MEDS: PANTOPRAZOLE 40 MG TABLET PO ×2 (08:44→17:50)
--- NOTE | 2020-06-07 10:43 | PM.PNNEP ---
Progress Note: A&P Assessment and Plan (1) Acute kidney injury: Code(s): N17.9 - Acute kidney failure, unspecified Status: Acute Assessment and Plan: The patient has acute renal failure. Renal ultrasound shows some small stones. The right kidney is small. No acute findings. He has a very high CPK and had brown urine on admission. Most likely this is rhabdomyolysis induced acute kidney injury. Bicarbonate level is up to 31. CK down to just over 2000. Urinalysis pending for today. Nurse will call me the results. He is getting half-normal saline with 75 of bicarb. (2) Rhabdomyolysis: Qualifiers: Rhabdomyolysis type: non-traumatic Qualified Code(s): M62.82 - Rhabdomyolysis Code(s): M62.82 - Rhabdomyolysis Status: Acute Assessment and Plan: Etiology most likely due to pressure related necrosis of muscle. CPK is improved. It fell from about 2800 to about 2000 (3) Right leg weakness: Code(s): R29.898 - Other symptoms and signs involving the musculoskeletal system Status: Acute Assessment and Plan: He has had a stroke in the past. Strokes in the posterior circulation. An echocardiogram was done which shows no source of clot. (4) H/O: HTN (hypertension): Code(s): Z86.79 - Personal history of other diseases of the circulatory system Status: Chronic Assessment and Plan: Blood pressure is under good control. (5) Drug abuse: Code(s): F19.10 - Other psychoactive substance abuse, uncomplicated Status: Acute (6) GERD (gastroesophageal reflux disease): Qualifiers: Esophagitis presence: esophagitis presence not specified Qualified Code(s): K21.9 - Gastro-esophageal reflux disease without esophagitis Code(s): K21.9 - Gastro-esophageal reflux disease without esophagitis Status: Chronic Assessment and Plan: No symptoms. Subjective Date/time seen: 06/07/20 10:43 Interval history: Patient is feeling better. He had a cramp in his right leg overnight. No chest pain or shortness of breath. Review of Systems Cardiovascular: Cardiovascular: Reports no additional cardiovascular complaints Respiratory: Respiratory: Reports no additional respiratory complaints Gastrointestinal: Gastrointestinal: Reports no additional gastrointestinal complaints Genitourinary: Genitourinary: Reports no additional male genitourinary complaints Exam Narrative: Exam Narrative: WDWN in NAD skin no rash or subcu nodules head ncat lungs clear cor reg no rub or gallop abd BS+ nontender and soft ext no edema Objective Data Vital Signs Vital Signs: Vital Signs - 24 hr 06/06/20 14:00 06/06/20 22:00 06/07/20 06:00 Temperature 36.9 C 36.6 C 36.3 C L Pulse Rate 68 83 77 Respiratory Rate 20 18 20 Blood Pressure 140/83 144/81 H 137/73 Pulse Oximetry 99 100 97 Intake/Output Intake/Output: Intake & Output 06/04/20 06/05/20 06/06/20 06/07/20 23:59 23:59 23:59 23:59 Intake Total 2800 2160 3620 989 Output Total 2075 2450 2200 1650 Balance 725 290 1420 661 Meds/Results Medications: Active Medications Generic Name Dose Route Start Last Admin Trade Name Freq PRN Reason Stop Dose Admin Acetaminophen 650 mg 06/01/20 00:29 06/07/20 08:51 Tylenol Tablet PO 650 mg Q4H PRN Administration Mild Pain (1-3) or Fever Aspirin 325 mg 06/03/20 09:00 06/07/20 08:44 Aspirin Ec PO 325 mg QAM SAMANTHA Administration Gabapentin 300 mg 06/01/20 00:35 06/06/20 20:32 Neurontin PO 300 mg HS SAMANTHA Administration Sodium Bicarbonate 75 meq/ 1,075 mls @ 75 mls/hr 06/05/20 18:00 06/07/20 05:01 Sodium Chloride IV CONT 75 mls/hr .[id number] SAMANTHA Infusion Nicotine 1 patch 06/02/20 09:00 06/07/20 08:44 Nicoderm Cq 14 Mg TRANSDERM 1 patch QAM SAMANTHA Administration Pantoprazole Sodium 40 mg 06/01/20 09:00 06/07/20 08:44 Protonix PO 40 mg BID S
[2020-06-07 11:20] LABS: Add Urine Microscopic? NO; Appearance Urine Clear (Clear); Bilirubin Urine Negative (Negative); Blood Urine Negative (Negative); Color Urine Straw (Yellow); Glucose Urine UA Negative (Negative); Ketones Urine Negative (Negative); Leukocyte Esterase Ur Negative LEU/UL (NEGATIVE); Nitrate Urine Negative (Negative); Protein Urine Negative (Negative); Specific Grav Ur 1.013 (1.001-1.035); Urobilinogen Urine Negative mg/dL (<2.0)
[2020-06-07 14:00] VITALS: BP 131/71; PULSE 75; RESP 20; TEMP 36.6; O2SAT 97
--- NOTE | 2020-06-07 16:10 | PM.IMPN ---
Progress Note: A&P Assessment and Plan (1) Right leg weakness: Code(s): R29.898 - Other symptoms and signs involving the musculoskeletal system Status: Acute Assessment and Plan: Patient has hx of CVA and right sided weakness but with worsening symptoms. MRI 06/01 showing acute infarcts in the left occipital lobe and bilateral cerebellum. Echo showing grade 1 diastolic dysfunction with EF of 60-65% and no shunt. Carotid US normal. No dysrhythmias noted by telemetry. Lipitor on hold due to the rhabdomyolysis. He takes baby ASA chronically that was increased to full. Blood pressure stable. Neurology following. Continue PT and OT. (2) Rhabdomyolysis: Qualifiers: Rhabdomyolysis type: non-traumatic Qualified Code(s): M62.82 - Rhabdomyolysis Code(s): M62.82 - Rhabdomyolysis Status: Acute Assessment and Plan: Patient with Total CK >74413 on admission. Appears to be secondary to the patient laying on the ground for hours. Total CK better at 2080. Creatinine better and AST/ALT trending down. Elevated troponin is noted but more likely related to the rhabdomyolysis. Continue IV fluids. Tolerating the aggressive IV hydration. Appreciate Nephrology input. Repeat Lasix. (3) Drug abuse: Code(s): F19.10 - Other psychoactive substance abuse, uncomplicated Status: Acute Assessment and Plan: Patient has been counseled about the benefits of abstaining from drug use. It has been explained that cocaine may have contributed to his stroke. (4) Hyperlipidemia: Qualifiers: Hyperlipidemia type: unspecified Qualified Code(s): E78.5 - Hyperlipidemia, unspecified Code(s): E78.5 - Hyperlipidemia, unspecified Status: Chronic Assessment and Plan: Lipid panel noted. Lipitor on hold due to rhabdomyolysis. (5) GERD (gastroesophageal reflux disease): Qualifiers: Esophagitis presence: esophagitis presence not specified Qualified Code(s): K21.9 - Gastro-esophageal reflux disease without esophagitis Code(s): K21.9 - Gastro-esophageal reflux disease without esophagitis Status: Chronic Assessment and Plan: Stable. Continue Protonix. (6) H/O: HTN (hypertension): Code(s): Z86.79 - Personal history of other diseases of the circulatory system Status: Chronic Assessment and Plan: Blood pressure reviewed on 06/07/2020. Blood pressure well controlled. Patient's lisinopril on hold. Continue to monitor. (7) Acute kidney injury: Code(s): N17.9 - Acute kidney failure, unspecified Status: Acute Assessment and Plan: Cr 1.7 on admission. Unclear of he has underlying CKD. Creatinine worsened to 2.1 felt related to the rhabdomyolysis. Cr better at 1.2 today. Renal ultrasound showing small right kidney. Nephrology following. Continue to monitor. Subjective Date/time seen: 06/07/20 16:10 Interval history: 59yo male with HTN and hx of left cerebral infarction with right hemiparesis presented with increasing right sided weakness. Had been lying on the floor for some time when he fell and CK markedly elevated. Date of visit 06/07: Patient complaining of increasing calf pain overnight. Seems to be better after walking with therapy. He does not have his leg brace here and therapist feels the patietn may be having more calf stretch than normal that could have contributed to the calf pain. Otherwise, patient feels well without CP, SOB or n/v. Exam Narrative: Exam Narrative: AF 131/71 75 20 97% ra Gen - NARD Chest - CTA bilaterally, nml RR CV - RRR S1/S2 Abd - Soft, NT/ND, Positive BS Ext - No pedal edema Neuro -right-sided hemiparesis Psych - Nml mood and affect. Skin - Warm and dry Objective Data Vital Signs Vital Signs: Vital Signs - 24 hr 06/06/20 22:00 06/07/20 06:00 06/07/20 14:00 Temperature 97.9 F 97.4 F L 97.8 F Pulse Rate 83 77 75 Respi
[2020-06-07] MEDS: SODIUM CHLORIDE 0.9% IV 1,000 ML 75 ML IV CONT (16:45)
[2020-06-07] MEDS: FUROSEMIDE INJ 40 MG/4 ML VIAL IV PUSH (17:50)
[2020-06-07] MEDS: GABAPENTIN 300 MG CAPSULE PO (21:10)
[2020-06-07 22:00] VITALS: BP 125/79; PULSE 58; RESP 20; TEMP 36.8; O2SAT 99
[2020-06-08 06:00] VITALS: BP 123/61; PULSE 65; RESP 18; TEMP 36.4; O2SAT 99
[2020-06-08] MEDS: SODIUM CHLORIDE 0.9% IV 1,000 ML 75 ML IV CONT (06:16)
[2020-06-08 06:41] LABS: Albumin Level 3.6 g/dL (3.5-5.1); Blood Urea Nitrogen 17 mg/dL (9-20); Calcium 8.7 mg/dL (8.4-10.2); Carbon Dioxide 27 mmol/L (22-30); Chloride 105 mmol/L (98-107); Creatine Kinase 1098 U/L (55-170); Estimated CRCL calculation 65 ml/min; Estimated Glomerular Filt Rate > 60; Glucose 149 mg/dL (75-110); Phosphorus 3.5 mg/dL (2.5-4.5); Potassium 3.8 mmol/L (3.4-5.0); Sodium 139 mmol/L (137-145)
[2020-06-08] MEDS: PANTOPRAZOLE 40 MG TABLET PO (08:20)
[2020-06-08] MEDS: NICOTINE (*PBKC) 14 MG PATCH 1 PATCH TRANSDERM (08:20)
[2020-06-08] MEDS: ASPIRIN 325 MG ENTERIC TABLET PO (08:20)
--- NOTE | 2020-06-08 09:33 | PM.DS ---
DS: Admitting Diagnosis Admitting Diagnosis Admitting Diagnosis: Other symptoms and signs involving the musculoskeletal system DS: Discharge Diagnosis Discharge Diagnosis (1) Right leg weakness: Code(s): R29.898 - Other symptoms and signs involving the musculoskeletal system Status: Acute Assessment and Plan: Patient has hx of CVA and right sided weakness but developed worsening right sided symptoms. MRI 06/01 showing acute infarcts in the left occipital lobe and bilateral cerebellum. Echo showing grade 1 diastolic dysfunction with EF of 60-65% and no shunt. Carotid US normal. No dysrhythmias noted by telemetry. Lipitor on hold due to the rhabdomyolysis. He takes baby ASA chronically that was increased to full ASA. Blood pressure stable. Neurology following. Did well with PT and OT. He was up walking in the halls with a walker with standby assistance. (2) Rhabdomyolysis: Qualifiers: Rhabdomyolysis type: non-traumatic Qualified Code(s): M62.82 - Rhabdomyolysis Code(s): M62.82 - Rhabdomyolysis Status: Acute Assessment and Plan: Patient with Total CK >43516 on admission. Appears to be secondary to the patient laying on the ground for hours. He was treated with IVF with bicarb added at times (depending on the urine pH). Total CK trended down to 1098. Creatinine better and AST/ALT trended down. Elevated troponin is noted but more likely related to the rhabdomyolysis. Nephrology followed along. (3) Drug abuse: Code(s): F19.10 - Other psychoactive substance abuse, uncomplicated Status: Acute Assessment and Plan: UDS positive for amphetamines and cocaine. Patient has been counseled about the benefits of abstaining from drug use. It has been explained that cocaine may have contributed to his stroke. (4) Hyperlipidemia: Qualifiers: Hyperlipidemia type: unspecified Qualified Code(s): E78.5 - Hyperlipidemia, unspecified Code(s): E78.5 - Hyperlipidemia, unspecified Status: Chronic Assessment and Plan: TC 93, TG 136, LDL 35 and HDL 32. Lipitor on hold due to rhabdomyolysis. Resume Lipitor when okay with the PCP (5) GERD (gastroesophageal reflux disease): Qualifiers: Esophagitis presence: esophagitis presence not specified Qualified Code(s): K21.9 - Gastro-esophageal reflux disease without esophagitis Code(s): K21.9 - Gastro-esophageal reflux disease without esophagitis Status: Chronic Assessment and Plan: Stable. We continued Protonix. (6) H/O: HTN (hypertension): Code(s): Z86.79 - Personal history of other diseases of the circulatory system Status: Chronic Assessment and Plan: Blood pressure monitored closely. Blood pressure remained well controlled. Patient's lisinopril was held due to MARCELL but resumed at discharge. (7) Acute kidney injury: Code(s): N17.9 - Acute kidney failure, unspecified Status: Acute Assessment and Plan: Cr 1.7 on admission. Unclear of he has underlying CKD. Creatinine worsened to 2.1 felt related to the rhabdomyolysis. Cr better at 1.1 today. Renal ultrasound showing small right kidney. Nephrology following. DS: Summary Hospital Course Reason for hospitalization: 59yo male with hx of CVA here for increasing right sided weakness. Please see H&P for details. Hospital Course: As above Time Spent with Patient Time attestation: Total time spent providing and/or coordinating discharge services:32 minutes Time spent: Greater than 30 minutes Specific discharge activities: Care of patient. preparing medical record. Discussed with nephrology and family (with patient permission) Exam Narrative: Exam Narrative: AF 123/61 65 18 99% Gen - NARD Chest - CTA bilaterally, nml RR CV - RRR S1/S2 Abd - Soft, NT/ND, Positive BS Ext - No pedal edema Neuro -right-sided hemiparesis. Psych - Nml mood and
== END 2020-06-08 13:30 | disposition home or self-care (01) | DRG 65 ==
LOC: ANHED 22:08 → ANHIMU 22:13 → ANH3MEDSUR 22:51 → ANHIMU 23:01 → ANH3MEDSUR 06-04 09:13 → ANHIMU 06-10 14:59
PROVIDERS: Emergency Medicine; Internal Medicine; Internal Medicine Nephrology; Admitting Provider Family Medicine; Emergency Provider Emergency Medicine; Visit Provider Internal Medicine
DX: I63.9 Cerebral infarction, unspecified (principal); M62.82 Rhabdomyolysis; I69.351 Hemiplegia and hemiparesis following cerebral infarction affecting right dominant side; N17.9 Acute kidney failure, unspecified; G81.91 Hemiplegia, unspecified affecting right dominant side; R29.898 Other symptoms and signs involving the musculoskeletal system; F15.10 Other stimulant abuse, uncomplicated; F14.10 Cocaine abuse, uncomplicated; E78.5 Hyperlipidemia, unspecified; K21.9 Gastro-esophageal reflux disease without esophagitis; I10 Essential (primary) hypertension; F17.210 Nicotine dependence, cigarettes, uncomplicated; R29.703 NIHSS score 3; Z59.0 Homelessness
CPT/HCPCS: 36415; 70450; 70553; 71045; 75635; 76775; 80048; 80053; 80061; 80069; 80076; 80307; 81001; 81003; 82248; 82550; 83735; 84100; 84443; 84484; 85025; 85027; 85610; 85730; 93880; 93970; 96361; 96365; 96375; 97110; 97116; 97161; 97165; 97530; 97535; 99285; A9270; A9577; C8929; G0378; J1940; J7030; J7070; Q9957; Q9967